=== PATIENT | male | born 1985 | race American Indian/Alaskan Native ===

== ENCOUNTER → 2023-07-03 09:48 | Outpatient (BNVA) | payer MEDICAID, SELFPAY | PROVIDERS: Visit Provider Physician Assistant Surgical ==

== ENCOUNTER 2023-08-02 10:01 | Outpatient (AMB) | payer MEDICAID, SELFPAY ==
--- NOTE | 2023-08-02 10:03 | MHC.OFFVISWM ---
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 He heard about the program from his friend. His goal is to lose weight and achieve a healthy lifestyle as well as to improve, if not resolve, obesity related medical conditions, including HTN. He reports first being concerned about his weight 10 years, highest weight to date was 250. Weight upon presentation to the [facility] program on 07/03/23 was 242.4 pounds with a BMI of 38. Current weight is 239.4 pounds with a BMI of 37.5. He has made an effort to eliminate soda and candy. He has tried multiple methods of weight loss including fad diets without permanent results. He lives with his son. 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 He wakes at:?1230 pm, and goes to bed at?3 am. Dinner is at 7 pm. Breakfast: 2 eggs, ham and toast AM snack: mashed potato w chicken Lunch: rice and chicken PM snack: PB crackers Other snacks: candy Liquids: 112 oz water, previously 3 cans soda daily, no juice Alcohol/marijuana/tobacco intake: none Exercise: previously [employer] GERD score: 23 SPIKE score: 9 ESS score: 16 QOL score: 122 PFSH Surgical History No history of previous surgery Family History Mother Cancer Hypertension Diabetes Father Hypertension Son Asthma Daughter Asthma Social History Alcohol intake: never Patient Tobacco Use Status: Never used Tobacco Review of Systems Const All systems reviewed & are unremarkable except as noted in HPI and below Physical Exam Vital Signs: Last Vital Signs Temp 97.5 F 08/02/23 10:09 Pulse 83 08/02/23 10:09 BP 165/98 H 08/02/23 10:09 Pulse Ox 98 08/02/23 10:09 Oxygen Delivery Method Room Air 08/02/23 10:09 BMI result Body Mass Index 37.5 Const General: cooperative, healthy appearing and no acute distress Orientation/consciousness: patient oriented x3 HEENT Head: Yes normal to inspection Ears: hearing grossly normal bilaterally General nose exam: Normal external nose present Face and sinus: Yes normal facial exam Eyes General: appearance normal, both eyes and all related structures Resp Effort & Inspection: normal respiratory effort Auscultation: clear to auscultation bilaterally Cardio Rate: regular rate Rhythm: regular rhythm Heart sounds: S1 normal heart sound present and S2 normal heart sound present GI Inspection: Yes normal to inspection, No distended and Yes obesity Palpation (GI): Soft to palpation, nontender and no guarding Auscultation: normal bowel sounds Skin General skin exam: no rashes or lesions noted Neuro General: patient oriented x3 Extrem General: No edema Psych Appearance: grossly normal Mental Status: mental status grossly normal Speech and movement: Normal speech and movement present Affect: normal affect Attitude: cooperative Assessment & Plan Assessment & Plan (1) Obesity (BMI 30-39.9): Code(s): E66.9 - Obesity, unspecified Plan: This is a?38 yo male who will start our SWL program to prepare for bariatric surgery.? Blood work, h pylori , CXR, ECG, Abd US and UGI have been ordered. He is being scheduled for RD and BH initial consultations. He will start SWL classes and watch the first three videos before his next appointment. ? Adequate sleep of 7-8 hours per night discussed, awakening at 1230 pm and going to bed at 3 am ? Purchase body composition analyzer scale ([employer] recommended) and check weight weekly. The best time to do this is first thing in the morning after going to the bathroom. 1. Nutritional counseling: Be sure to careful read the number of scoops per shake Start with 1 Celebrate [place] shake ([facility] [employer], [employer], [employer]), (2 scoops in 20 oz unsweetened almond milk) at 130pm-330pm Meal at 5pm (8 forks of protein and 8 forks of salad/vegetables). Meal to include lean meat (beef, fish, pork, turkey, chicken), cooked vegetables or a salad with olive oil and/or fruits (berries, pears, apples, kiwi). Avoid salt, breads, potatoes, rice, pasta, desserts. 2 protein bars per day (Celebrate bars at [facility] [employer], [employer], [employer]) First bar at 730pm-930pm. Another protein bar at 1130pm-130am. Try to drink 64-80 oz of water daily and avoid soda and juices. ?2. Each shake would be drunk slowly, like coffee in a period of 2 hours. ?3. Cut each bar in 4 pieces and eat each piece in 30 min ?to make each bar last 2 hours. ?4. I emphasized the importance of measuring accurately the food portion and measure it carefully when serving the food on the plate ?5. The meal portions include 8 full-size forks of meat and 8 full-size forks of salad. You always eat the meat portion but you can replace up to half of the forks of salad/vegetables with rice, potatoes or pasta, or a fruit ?if you like. The less you do it the better weight loss will be. ?6. One full-size fork is what can be scooped on the fork without falling aside and not what can be bit with the fork. Use regular forks like those you find in a typical restaurant. ?7.? Please send me weight measurements as soon as possible and then once a week. Always include your diet and exercise plan. Alternatively come weekly at the office for weight checks and send me the measurements. ?8. Exercise counseling: Begin by watching a stretching for beginners video. Start slowly and begin to stretch your muscles. You should do this before and after each exercise session to prevent injury. Please join [employer] gym near your home. Ask the regional retail sales manager or one of the trainers how to use the machines if you are unfamiliar with them. Start elliptical with a resistance of 2. Increase resistance by 1 every 3 min to your most comfortable resistance with a max resistance of 8. Reduce the resistance by 1 every 3 minutes back down to 2 and repeat cycles for 300 calories. Alternatively, start treadmill with a speed of 3.0 and incline of 0, increasing incline by 1 every 3 minutes to the highest comfortable level (max 6 for now) then decrease in the same fashion. Repeat process to a goal of 300 calories. Goal of 2000 calories burned or more weekly. You may also consider use of the stationary bike. The easiest would be to chose the fat-burn or interval training program on the machine and do this until you reach the 300 calorie goal. Alternatively, you can manually adjust the resistance in a similar fashion as mentioned above, (resistance of 2-8 with a goal speed of 12 mph). Tracking calories is essential. 9. Alternatively start walking outside daily, tracking calories with a goal of 300 calories per day, daily. You can download the [employer]von [employer] which can track your time, distance and calories while walking outside. You press start in the trevon when you start and then stop when you are finished. 10.? It is important to communicate with me weekly by text 11. Please get labs, EKG and chest X-Ray within 1 week. 12. Discussed and answered all questions regarding?obtained consent to participate in the [place] [facility]?Registry. 13. Please follow the diet plan exactly, without any change. If you do not like something about the plan or you feel hungry, you need to communicate with me so I can help you revise the plan. You should not change the plan yourself. Text me at [phone] 14. Goal is to lose at least 10 pounds in the first month 15. Goal is to lose 10% of your weight before surgery, which is about 24 lbs. Ultimate weight goal: 218 lbs before surgery Patient is morbidly obese and is not considered stable at this time.?I spent a total of 70 minutes reviewing/updating records, examining the patient and counseling the patient on weight management as detailed above. (2) Snoring: Code(s): R06.83 - Snoring Plan: will check home sleep study and refer to sleep med if positive Orders: Orders Insulin Today E66.9 - Obesity, unspecified, R06.83 - Snoring Zinc Today E66.9 - Obesity, unspecified, R06.83 - Snoring Vitamin B1 Today E66.9 - Obesity, unspecified, R06.83 - Snoring C Reactive Protein Today E66.9 - Obesity, unspecified, R06.83 - Snoring TSH reflex Free T4 Today E66.9 - Obesity, unspecified, R06.83 - Snoring H Pylori Breath Test Today E66.9 - Obesity, unspecified, R06.83 - Snoring XR chest 2V Today E66.9 - Obesity, unspecified, R06.83 - Snoring ECG 12 lead EKG Today E66.9 - Obesity, unspecified, R06.83 - Snoring Lipid Panel Today E66.9 - Obesity, unspecified, R06.83 - Snoring IRON PROFILE Today E66.9 - Obesity, unspecified, R06.83 - Snoring Complete Blood Count Auto Diff Today E66.9 - Obesity, unspecified, R06.83 - Snoring Vitamin B12 and Folate Today E66.9 - Obesity, unspecified, R06.83 - Snoring Comprehensive Met. Panel Today E66.9 - Obesity, unspecified, R06.83 - Snoring Vitamin A Today E66.9 - Obesity, unspecified, R06.83 - Snoring Ferritin Today E66.9 - Obesity, unspecified, R06.83 - Snoring PTHI Today E66.9 - Obesity, unspecified, R06.83 - Snoring Vitamin D 25-OH Total Today E66.9 - Obesity, unspecified, R06.83 - Snoring Hemoglobin A1c Today E66.9 - Obesity, unspecified, R06.83 - Snoring US abdomen comp w elastography Today E66.9 - Obesity, unspecified, R06.83 - Snoring FL upper GI w air Today E66.9 - Obesity, unspecified, R06.83 - Snoring RT home sleep study Today E66.9 - Obesity, unspecified, R06.83 - Snoring Referrals Behavioral Health Referral E66.9 - Obesity, unspecified, R06.83 - Snoring Nutrition/Dietitian Referral E66.9 - Obesity, unspecified, R06.83 - Snoring Coding Level of Care Code New Pt Level 5 (68629) Diagnoses Obesity (BMI 30-39.9) E66.9 Snoring R06.83 Time Spent (min) 70
[2023-08-02 10:09] VITALS: BP 165/98; PULSE 83; TEMP 36.4; O2SAT 98; BMI 37.5
== END 2023-08-02 11:12 | disposition home or self-care (01) ==
PROVIDERS: Visit Provider Physician Assistant Surgical
DX: E66.9 Obesity, unspecified (principal); Z68.37 Body mass index [BMI] 37.0-37.9, adult; R06.83 Snoring
CPT/HCPCS: 99205

== ENCOUNTER 2023-08-02 10:01 | Outpatient (REF) | payer MEDICAID, SELFPAY ==
[2023-08-05 09:10] LABS: H Pylori Breath Test Positive (Negative)
== END 2023-08-02 10:02 | disposition home or self-care (01) ==
LOC: HO.LNP 10:01
PROVIDERS: Visit Provider Physician Assistant Surgical
DX: E66.9 Obesity, unspecified (principal); R06.83 Snoring; Z71.3 Dietary counseling and surveillance; Z11.0 Encounter for screening for intestinal infectious diseases; Z68.38 Body mass index [BMI] 38.0-38.9, adult
CPT/HCPCS: 83013; 99211; 99212

== ENCOUNTER 2023-08-21 09:38 | Outpatient (REF) | payer MEDICAID, SELFPAY ==
[2023-08-21 10:01] LABS: MANUAL DIFF FLAG NO
[2023-08-21 10:28] LABS: Estimated Average Glucose 117 mg/dL; Hemoglobin A1c % 5.7 % (<6.0)
[2023-08-21 10:34] LABS: Basophils Absolute Auto 0.1 X10*3/uL (0.0-0.2); Basophils Percent Auto 0.8 % (0-2); Eosinophils Absolute Auto 0.1 X10*3/uL (0.0-0.4); Eosinophils Percent Auto 1.4 % (0-4); Hematocrit 42.3 % (42.0-52.0); Hemoglobin 13.8 g/dl (14.0-18.0); Imm Gran Abs Auto 0.03 X10*3/uL (0.00-0.03); Imm Gran Pct Auto 0.4 % (0.0-0.4); Lymphocytes Absolute Auto 1.6 X10*3/uL (1.2-4.9); Lymphocytes Percent Auto 19.3 % (20-40); Mean Corpuscular HGB Conc 32.6 g/dl (31.0-36.0); Mean Corpuscular Hemoglobin 27.9 pg (27.0-33.0); Mean Corpuscular Volume 85.6 fL (80.0-98.0); Mean Platelet Volume 10.4 fL (9.4-12.4); Monocytes Absolute Auto 0.5 X10*3/uL (0.1-1.2); Monocytes Percent Auto 5.4 % (2-11); Neutrophils Percent Auto 72.7 % (45-73); Platelet Count 336 X10*3/uL (160-400); Red Blood Count 4.94 X10*6/uL (4.60-5.80); Red Cell Distribution Width 12.8 % (11.0-16.0); White Blood Count 8.3 X10*3/uL (4.8-10.8)
[2023-08-21 10:59] LABS: Alanine Aminotransferase 34 U/L (0-40); Albumin Level 4.1 g/dL (3.5-5.0); Alkaline Phosphatase 78 U/L (39-117); Anion Gap 10 (12-20); Aspartate Amino Transferase 24 U/L (5-37); Bilirubin Total 0.4 mg/dL (0.0-1.0); Blood Urea Nitrogen 15 mg/dL (9-16); C Reactive Protein 1.57 mg/dL (< or = 0.50); Calcium 9.6 mg/dL (8.4-10.2); Carbon Dioxide 28 mmol/L (22-29); Chloride 108 mmol/L (96-108); Cholesterol 149 mg/dL (<200); Estimated Glomerular Filt Rate > 60; Glucose Random 103 mg/dL (60-115); HDL Cholesterol 46 mg/dL (>40); Iron 41 mcg/dL (45-160); LDL Cholesterol Calculated 91 mg/dL (<100); Percent Iron Saturation 17 % (15-50); Potassium 4.6 mmol/L (3.3-5.1); Sodium 141 mmol/L (135-145); Total Iron Binding Capacity 243 mcg/dL (228-428); Total Protein 7.9 g/dL (6.5-8.0); Triglycerides 60 mg/dL (<150); Unsaturated Iron Binding 202 ug/dL
[2023-08-21 11:25] LABS: Ferritin 169 ng/mL (20-250); TSH reflex Free T4 2.01 uIU/mL (0.32-4.0); Vitamin D 25-OH Total 15.3 ng/mL (>30)
[2023-08-21 11:32] LABS: Folate 10.5 ng/mL (> or = 4.0); Vitamin B12 745 pg/mL (200-900)
[2023-08-21 11:41] LABS: Insulin 12 uU/mL (2-29)
[2023-08-23 15:31] LABS: H Pylori Breath Test Negative (Negative)
[2023-08-23 16:24] LABS: Zinc 69 mcg/dL (60-130)
[2023-08-25 03:59] LABS: Vitamin A 32 mcg/dL (38-98)
[2023-08-26 08:38] LABS: Vitamin B1 23 nmol/L (8-30)
== END 2023-08-21 09:39 | disposition home or self-care (01) ==
LOC: HO.LAB 09:38
PROVIDERS: Visit Provider Physician Assistant Surgical
DX: E66.9 Obesity, unspecified (principal); R06.83 Snoring; Z71.3 Dietary counseling and surveillance
CPT/HCPCS: 36415; 80053; 80061; 82306; 82607; 82728; 82746; 83013; 83036; 83525; 83540; 84425; 84443; 84590; 84630; 85025; 86140; 97802; 99211

== ENCOUNTER 2023-08-21 10:08 | Outpatient (AMB) | payer MEDICAID, SELFPAY ==
--- NOTE | 2023-08-21 11:07 | A.OFFVIS_ITS ---
Intake Intake Visit Reasons: (OV) Initial Nutrition [facility] Assistant Director Of Public Works Required: Yes Assistant Director Of Public Works Name: Gisele [id number] Information Interpreted: non-clinical & clinical Allergies No Known Allergies Allergy (Verified 08/02/23 10:07) HPI Nutrition Presentation Reason for consult elevated BMI Diet Assmnt Details Pt reports following his nutrition plan, no questions or concerns. Walking outside daily for 1 hour [facility] online classes: was taking [facility] classes by mistake , will enroll in [facility]. provided handouts and post op diet education verbally Dietary counseling reduction Who buys your food self Who prepares/cooks your food self Lifestyle Eating out 1-3 times/week Food frequency Fruit: daily, Vegetables: daily, Grains/pasta/breads/cereal (carbs): daily, Meats/poultry/fish (protein): daily (likes everything ), Meat substitutes/nuts/seeds/legumes: daily, Restaurants/fast foods: several times weekly, Water: daily, Soda: daily, Juice: daily and Coffee: daily Diagnosis Nutrition problem #1 overweight/obesity As related to (etiology) #1 excess energy intake and physical inactivity As evidenced by (sign/symptom) #1 high BMI Monitoring/Goals Nutrition problem monitoring total energy intake, level of knowledge/skill, total PRO intake, total CHO intake, weight and oral fluids Outcome progress progressing Learning/Education Readiness to learn good Stages of change action Educational materials provided Yes Most Recent Diabetes Results: Cholesterol 149 mg/dL (<200) 08/21/23 HDL Cholesterol 46 mg/dL (>40) 08/21/23 Triglycerides 60 mg/dL (<150) 08/21/23 Creatinine 0.84 mg/dL (0.5-1.4) 08/21/23 Blood Urea Nitrogen 15 mg/dL (9-16) 08/21/23 Sodium 141 mmol/L (135-145) 08/21/23 Potassium 4.6 mmol/L (3.3-5.1) 08/21/23 Chloride 108 mmol/L (96-108) 08/21/23 Carbon Dioxide 28 mmol/L (22-29) 08/21/23 Calcium 9.6 mg/dL (8.4-10.2) 08/21/23 AST 24 U/L (5-37) 08/21/23 ALT 34 U/L (0-40) 08/21/23 Total Protein 7.9 g/dL (6.5-8.0) 08/21/23 Albumin 4.1 g/dL (3.5-5.0) 08/21/23 [facility] Surgical History No history of previous surgery Family History Mother Cancer Hypertension Diabetes Father Hypertension Son Asthma Daughter Asthma Social History Alcohol intake: never Patient Tobacco Use Status: Never used Tobacco Assessment & Plan Assessment & Plan (1) Obesity (BMI 30-39.9): Code(s): E66.9 - Obesity, unspecified Plan complete classes, nutrition f/u when completed Coding Level of Care Code Nutr Indiv Intake (21204) Diagnoses Obesity (BMI 30-39.9) E66.9 Time Spent (min) 40
== END 2023-08-21 11:56 | disposition home or self-care (01) ==
PROVIDERS: Visit Provider Dietitian, Registered
DX: E66.9 Obesity, unspecified (principal)

== ENCOUNTER 2023-08-28 11:02 | Outpatient (AMB) | payer MEDICAID, SELFPAY ==
--- NOTE | 2023-08-28 11:06 | A.OFFVIS_ITS ---
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 They were last seen in the office on 08/02/2023, recorded weight at that time was 239.4 pounds, with a BMI of 37.5. Today's weight is 238.6 pounds and BMI is 37.4. There has been a weight loss of 3.6 pounds since initiating the surgical weight loss program on 07/03/2023 with a total body weight loss of 1.4 %. Pre op work up completed as follows: SWL classes:? 04/25 BH appts: 09/04/2023 ? ? RD appts: 09/04/2023 Labs: 08/21/2023-low D, a. H. pylori: 08/02/2023-positive, repeat 08/21/2023-negative CXR: Not yet done EKG: Not yet done ABD U/S: 09/06/23 UGI: 10/23/23 The patient reports he feels very well. He is following the meal plan. He does however have elevated asymptomatic hypertension here in the office. He states that when he was receiving care in [place] he was getting atenolol 50 mg daily although he stopped this on his own approximately 2 years ago. The patient does have a body composition scale. They also have been communicating weekly. Current meal plan includes: 1 Celebrate Rebuild shake ([facility] [employer], [employer], [employer]), (2 scoops in 20 oz unsweetened almond milk) at 130pm-330pm Meal at 5pm (8 forks of protein and 8 forks of salad/vegetables). 2 protein bars per day ([facility], [employer], [employer]) First bar at 730pm-930pm. Another protein bar at 1130pm-130am. Drinking 40 oz of water Current exercise plan includes: walking treadmill 5 x per week, 30-60 minutes PFSH Surgical History No history of previous surgery Family History Mother Cancer Hypertension Diabetes Father Hypertension Son Asthma Daughter Asthma Social History Alcohol intake: never Patient Tobacco Use Status: Never used Tobacco Review of Systems Const All systems reviewed & are unremarkable except as noted in HPI and below Physical Exam Vital Signs: Last Vital Signs Temp 97.1 F 08/28/23 11:13 Pulse 68 08/28/23 11:13 BP 164/98 H 08/28/23 11:13 Pulse Ox 97 08/28/23 11:13 Oxygen Delivery Method Room Air 08/28/23 11:13 BMI result Body Mass Index 37.4 Const General: healthy appearing and no acute distress Resp Effort & Inspection: normal respiratory effort Auscultation: clear to auscultation bilaterally Cardio Rate: regular rate Rhythm: regular rhythm GI Auscultation: normal bowel sounds Extrem General: Yes normal to inspection Assessment & Plan Assessment & Plan (1) Obesity (BMI 30-39.9): Code(s): E66.9 - Obesity, unspecified Plan: Continue current meal plan. Encouraged to track calories on the treadmill. He will continue to text me weekly with his weight and if any questions. (2) HTN (hypertension): Code(s): I10 - Essential (primary) hypertension Plan: Currently asymptomatic. He was supposed to be taking atenolol 50 mg daily although stopped this on his own. I did call the [place] [facility] on [address] in [place] however they do not accept his insurance and he was directed to go to the walk-in clinic at [address] [place] [address] in [place]. He states that he will go there today for care. Coding Level of Care Code Est Pt Level 4 (06357) Diagnoses Obesity (BMI 30-39.9) E66.9 HTN (hypertension) I10
[2023-08-28 11:13] VITALS: BP 164/98; PULSE 68; TEMP 36.2; O2SAT 97; BMI 37.4
== END 2023-08-28 11:53 | disposition home or self-care (01) ==
PROVIDERS: Visit Provider Physician Assistant Surgical
DX: E66.9 Obesity, unspecified (principal); Z68.37 Body mass index [BMI] 37.0-37.9, adult; I10 Essential (primary) hypertension
CPT/HCPCS: 99214

== ENCOUNTER → 2023-08-28 11:02 | Outpatient (BNVA) | payer MEDICAID, SELFPAY | PROVIDERS: Visit Provider Physician Assistant Surgical | DX: E66.9 Obesity, unspecified (principal); I10 Essential (primary) hypertension; Z68.37 Body mass index [BMI] 37.0-37.9, adult | CPT/HCPCS: 99212 ==

== ENCOUNTER 2023-09-01 10:43 | Outpatient (REF) | payer MEDICAID, SELFPAY ==
--- NOTE | ~2023-09-01 | XR_ITS ---
EXAMINATION: XR CHEST CLINICAL INFORMATION: Obesity COMPARISON: None available. TECHNIQUE: 2 views of the chest were obtained. FINDINGS: Slight obscuration of the left hemidiaphragm, likely due to superimposition of tissues with no reproduction on lateral view. No significant abnormality is noted involving the heart, lungs, mediastinum, bony thorax or soft tissues. XR/XR chest 2V IMPRESSION: No acute cardiopulmonary disease.
--- NOTE | 2023-09-01 10:47 | ECG_ITS ---
Test Reason : e66.9 Blood Pressure : / mmHG Vent. Rate : 072 BPM Atrial Rate : 072 BPM P-R Int : 146 ms QRS Dur : 084 ms QT Int : 360 ms P-R-T Axes : 046 016 005 degrees QTc Int : 394 ms Normal sinus rhythm Normal ECG No previous ECGs available Referred By: Domenic Metzger Electronically Signed By:Reinaldo Krueger
== END 2023-09-01 10:44 | disposition home or self-care (01) ==
LOC: HO.XRAY 10:43
PROVIDERS: Visit Provider Physician Assistant Surgical
DX: E66.9 Obesity, unspecified (principal); R06.83 Snoring
CPT/HCPCS: 71046; 93005

== ENCOUNTER → 2023-09-01 10:47 | Outpatient (BNV) | payer MEDICAID, SELFPAY | PROVIDERS: Visit Provider Internal Medicine Cardiovascular Disease | DX: R06.83 Snoring (principal); E66.9 Obesity, unspecified | CPT/HCPCS: 93010 ==

== ENCOUNTER 2023-09-04 09:35 | Outpatient (AMB) | payer MEDICAID, SELFPAY ==
--- NOTE | 2023-09-04 10:59 | MHC.AMNUTRGE ---
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 Dinner meal is at 6pm chicken in the ir fryer and salad with vinegar Walking outside daily for 1 hour [facility] online classes: completed , reviewed Dietary counseling reduction Who buys your food self Who prepares/cooks your food self Diagnosis Nutrition problem #1 overweight/obesity As related to (etiology) #1 excess energy intake and physical inactivity As evidenced by (sign/symptom) #1 high BMI Monitoring/Goals Nutrition problem monitoring total energy intake, level of knowledge/skill, total PRO intake, total CHO intake, weight and oral fluids Outcome progress progressing Learning/Education Readiness to learn good Stages of change action Educational materials provided Yes Most Recent Diabetes Results: Cholesterol 149 mg/dL (<200) 08/21/23 HDL Cholesterol 46 mg/dL (>40) 08/21/23 Triglycerides 60 mg/dL (<150) 08/21/23 Creatinine 0.84 mg/dL (0.5-1.4) 08/21/23 Blood Urea Nitrogen 15 mg/dL (9-16) 08/21/23 Sodium 141 mmol/L (135-145) 08/21/23 Potassium 4.6 mmol/L (3.3-5.1) 08/21/23 Chloride 108 mmol/L (96-108) 08/21/23 Carbon Dioxide 28 mmol/L (22-29) 08/21/23 Calcium 9.6 mg/dL (8.4-10.2) 08/21/23 AST 24 U/L (5-37) 08/21/23 ALT 34 U/L (0-40) 08/21/23 Total Protein 7.9 g/dL (6.5-8.0) 08/21/23 Albumin 4.1 g/dL (3.5-5.0) 08/21/23 PFSH Surgical History No history of previous surgery Family History Mother Cancer Hypertension Diabetes Father Hypertension Son Asthma Daughter Asthma Social History Alcohol intake: never Patient Tobacco Use Status: Never used Tobacco Assessment & Plan Assessment & Plan (1) Obesity (BMI 30-39.9): Code(s): E66.9 - Obesity, unspecified Plan Patient is cleared from a nutrition standpoint for bariatric surgery. Educational requirements have been completed. Reviewed vitamin supplementation and commitment to protein shake for several months post surgery. Encouraged communication with office as needed Coding Level of Care Code Nutr Indiv Subseq ([id number]) Diagnoses Obesity (BMI 30-39.9) E66.9 Time Spent (min) 20
== END 2023-09-04 11:15 | disposition home or self-care (01) ==
PROVIDERS: Visit Provider Dietitian, Registered
DX: E66.9 Obesity, unspecified (principal)

== ENCOUNTER 2023-09-04 09:35 | Outpatient (AMB) | payer OTHER, SELFPAY ==
--- NOTE | 2023-09-04 10:13 | A.OFFWM_ITS ---
Intake Intake Visit Reasons: VIDEO BH Intake Allergies No Known Allergies Allergy (Verified 08/28/23 11:22) [facility] Surgical History No history of previous surgery Family History Mother Cancer Hypertension Diabetes Father Hypertension Son Asthma Daughter Asthma Social History Alcohol intake: never Patient Tobacco Use Status: Never used Tobacco Behavioral Health Assessment Weight Management Therapy Therapy Notes Details Pt is a 48 years old, male, who presents for initial behavioral health assessment as part of surgical weight-loss program. PT denied any history of mental health treatment and or past hospitalization/crisis for behavioral health. Denies any safety concerns around SI and/or self-other harm, also there is no history of substance use reported. There is also no evidence for stress/emotional-eating, and scores from BES suggest minimal risk for binge eating behavior. PHQ- scores also showed no active symptoms/concerns with depression. Mental status exam is withing normal limits, suggesting person's functioning is not impaired. At this time patient is cleared from the behavioral health standpoint. Presenting Concerns Referral Source [facility]MP Provider, Pt sees [facility]. Reason for referral Completion of behavioral health assessment as part of process for weight-loss surgery. Precipitating Event Obesity. Living Situation Current Living Situation Rent At risk of losing current housing? No Satisfied with current living situation? Yes Comments PT lives with his 17 y/o son. Food/Weight/Diet Expectations of change The initial goal is to lose 10% of his weight before surgery, about 24 lbs- Ultimate weight goal: 218 Lbs before surgery. Pt would like to weigh a min of 175 lbs. History/Relationship with food Food choices were -style and also whatever was convenient such as take-out and fast food. . Meals before starting the plan Breakfast: 10 am/ rice with beans Lunch: before 3 pm, any fast food or take out (Iranian, burgers, pizza) Dinner: usually while at work so he would snack or skip. After work, @2am had cereal with milk or any available food. History/Relationship with weight Max weight in past 10 years was 260Lbs in summer/2021 and lowest 170Lbs in 2015. Weight gain has been steady. However in 2019 he had major changes leading to work a lot and eat in a different schedule, wasn't exercising and food choices were mostly quick and convenient. History/Relationship with dieting Reduce portions, cut on calories and carbs, shakes, and portion control. Gym membership. Now following meal plan. Binge Eating Do you frequently eat large amounts of food in short periods of time, not feeling physically hungry? Yes Do you feel out of control when you eat a large amount of food in a short period of time? No Do you eat large amounts of food rapidly and typically alone? No Night Eating Do you wake up at least once during the night to eat? No If you wake up in the night, do you find that it is necessary to eat something in order to fall back asleep? No Do you have little or no appetite in the morning and feel very hungry in the evening, often overeating between dinner and when you go to bed? Yes Social History Family history and relationship Single father. He has 2 children. 17 y/o son who lives with him and 13 y/o daughter who lives in [place]. PT has 2 siblings. Parents alive. Most of his family live in [place] and sister in [place]. Patient reports excellent family relationships. 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 Pt has full custody. Developmental history and status None reported. Currently [facility]. Social support Mother. Community support None. 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 Cultural/Ethnic information , from [place]. Lives in [place] 2 years ago. Legal Involvement and History Current or historical involvement with the legal system? None reported. Education Highest grade completed 12th. Vocational/trait school. Preferred learning style Auditory, Verbal, Written, Learn by doing and Visual Currently enrolled in educational program? No Interested in further educational program? 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 No Meaningful activities Drive, cinema. Financial Situation Describe current financial situation Comfortable Financial assistance? None Service Service? No Mental Health and Addiction Treatment Current/Past substance abuse? No Current/Past addictive behavior concerns? No Psychiatric history Never in treatment before. Medical and Physical Health Summary Additional Medical History not covered in history None reported Sexual History concerns None reported Physical exam in the last year? Yes Pain Screening Current pain? No Pain in the last few months? No Medications Is the patient compliant with medications? Yes Does the patient have Odom Guardian in place? Not applicable Does the patient use complimentary health approaches? No Trauma/Abuse History History of trauma? No Questionnaires PHQ-9 Over the last 2 weeks, how often have you been bothered by any of the following problems? 1. Little interest or pleasure in doing things: not at all 2. Feeling down, depressed, or hopeless: not at all 3. Trouble falling or staying asleep, or sleeping too much: not at all 4. Feeling tired or having little energy: not at all 5. Poor appetite or overeating: not at all 6. Feeling bad about yourself - or that you are a failure or have let yourself or your family down: not at all 7. Trouble concentrating on things, such as reading the newspaper or watching television: not at all 8. Moving or speaking so slowly that other people could have noticed. Or the opposite - being so fidgety or restless that you have been moving around a lot more than usual: not at all 9. Thoughts that you would be better off or of hurting yourself in some way: not at all Total score: 0 Depression Screening Interpretation: Negative Depression Screening Done: Yes 32540 - PHQ-9 Billing: Yes Source: Developed by Drs. Clive Oconnell, Anusha Campuzano, Yassine Beltre and colleagues, with an educational jamey from [employer]. Binge Eating Scale Group 1 A. I don't feel self-conscious about my wt. or body size when I'm with others. B. I feel concerned about how I look to others, but it normally does not make me fell disappointed with myself C. I do get self-conscious about my appearance and wt. which makes me feel disappointed in myself. D. I feel very self-conscious about my wt. and frequently I feel intense shame and disgust for myself. I try to avoid social contacts because of my self- consciousness. Response Group 1: B Group 2 A. I don't have any difficulty eating slowly in the proper manner. B. Although I seem to gobble down foods, I don't end up feeling stuffed because of eating to much. C. At times, I tend to eat quickly and then, I feel uncomfortably full afterwards. D. I have the habit of bolting down my food, without really chewing it. When this happens I usually feel uncomfortably stuffed because I've eaten to much. Response Group 2: B Group 3 A. I feel capable to control my eating urges when I want to. B. I feel like I have failed to control my eating more than the average person. C. I feel utterly helpless when it comes to feeling in control of my eating urges. D. Because I feel so helpless about controlling my eating I have become very desperate about trying to get control. Response Group 3: A Group 4 A. I don't have the habit of eating when I'm bored. B. I sometimes eat when I'm bored, but often I'm able to get busy and get my mind off food. C. I have a regular habit of eating when I'm bored, but occasionally, I can use some other activity to get my mind off eating. D. I have a strong habit of eating when I'm bored. Nothing seems to help me breath the habit. Response Group 4: A Group 5 A. I'm usually physically hungry when I eat something. B. Occasionally, I eat something on impulse even though I really am not hungry. C. I have the regular habit of eating foods, that I might not really enjoy, to satisfy a hungry feeling even though physically, I don't need the food. D. Although I'm not physically hungry, I get a hungry feeling in my mouth that only seems to be satisfied when I eat a food, like sandwich, that fills my mouth. Sometimes, when I eat the food to satisfy my mouth hunger, I then spit the food out so I won't gain weight. Response Group 5: A Group 6 A. I don't feel any guilt or self-hate after I overeat. B. After I overeat, occasionally I feel guilt or self-hate. C. Almost all the time I experience strong guilt or self-hate after I overeat. Response Group 6: B Group 7 A. I don't lose total control of my eating when dieting even after periods when I overeat. B. Sometimes when I eat a forbidden food on a diet, I feel like I blew it and eat even more. C. Frequently, I have the habit of saying to myself, I've blown it now, why not go all the way, when I overeat on a diet. When that happens I eat more. D. I have a regular habit of starting a strict diets for myself but I break the diets by going on an eating binge. My life seems to be either a feast or famine. Response Group 7: A Group 8 A. I rarely eat so much food that I feel uncomfortably stuffed afterwards. B. Usually about once a month, I each such a quantity of food, I end up feeling very stuffed. C. I have regular periods during the month when I eat large amounts of food, either at mealtime or at snacks. D. I eat so much food that I regularly feel quite uncomfortable after eating and sometimes a bit nauseous. Response Group 8: A Group 9 A. My level of calorie intake does not go up very high or go down very low on a regular basis. B. Sometimes after I overeat, I will try to reduce my caloric intake to almost nothing to compensate for the excess calories I've eaten. C. I have a regular habit of overeating during the night. It seems that my routine is not to be hungry in the morning but overeat in the evening. D. In my adult years, I have had week-long periods where I practically starve myself. This follows periods when I overeat. It seems I live a life of either feast or famine. Response Group 9: B Group 10 A. I usually am able to stop eating when I want to. I know when enough is enough. B. Every so often, I experience a compulsion to eat which I can't seem to control. C. Frequently, I experience strong urges to eat which I seem unable to control, but at other times I can control my eating urges. D. I feel incapable of controlling urges to eat. I have a fear of not being able to stop eating voluntarily. Response Group 10: A Group 11 A. I don't have any problem stopping eating when I feel full. B. I usually can stop eating when I feel full but occasionally overeat leaving me feeling uncomfortably stuffed. C. I have a problem stopping eating once I start and usually I feel uncomfortably stuffed after I eat a meal. D. Because I have a problem not being able to stop eating when I want, I sometimes have to induce vomiting to relieve my stuffed feeling. Response Group 11: B Group 12 A. I seem to eat just as much when I'm with others, Family social gatherings as when I'm by myself. B. Sometimes, when I'm with other persons, I don't eat as much as I want to eat because I'm self-conscious about my eating. C. Frequently, I eat only a small amount of food when others are present, because I'm very embarrassed about my eating. D. I feel so ashamed about overeating that I pick times to overeat when I know no one will see me. I feel like a closet eater. Response Group 12: C Group 13 A. I eat three meals a day with only an occasional between meal snack. B. I eat 3 meals a day, but I also normally snack between meals. C. When I am snacking heavily, I get in the habit of skipping regular meals. D. There are regular periods when I seem to be continually eating, with no planned meals. Response Group 13: A Group 14 A. I don't think much about trying to control unwanted eating urges. B. At least some of the time, I feel my thoughts are pre-occupied with trying to control my eating urges. C. I feel that frequently I spend much time thinking about how much I ate or about trying not to eat anymore. D. It seems to me that most of my waking hours are pre-occupied by thoughts about eating or not eating. I feel like I'm constantly struggling not to eat. Response Group 14: B Group 15 A. I don't think about food a great deal. B. I have strong craving for food but they last only for brief periods of time. C. I have days when I can't seem to think about anything else but food. D. Most of my days seem to be pre-occupied with thoughts about food. I feel like I live to eat. Response Group 15: A Group 16 A. I usually know whether or not I'm physically hungry. I take the right portion of food to satisfy me. B. Occasionally, I feel uncertain about knowing whether or not I'm physically hungry. A these times it's hard to know how much food I should take to satisfy me. C. Even though I might know how many calories I should eat, I don't have any idea what is a normal amount of food for me. 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 Client is cleared and there is no need for follow up. Clinician has advised client about available resources if ever in need to access additional support and has encourage client to participate in post-op groups. Telehealth Telehealth Location of provider rendering services: other Location of patient: other (@Practice. ) Patient Identification confirmed using: Name, : Yes Telehealth method: video Patient verbally consented to treatment: Yes Patient verbally consented to billing insurance company: Yes Patient informed of any privacy concerns related to visit: No Minutes spent on Phone/Video with Pt.: 50 Coding Level of Care Code New Pt Tele Psy Diag Faby ([id number]) Patient Type New Diagnoses Adjustment disorder, unspecified type F43.20 Adjustment disorder type: unspecified type Time Spent (min) 50
== END 2023-09-04 11:00 | disposition home or self-care (01) ==
PROVIDERS: Visit Provider Counselor Mental Health
DX: F43.20 Adjustment disorder, unspecified (principal)
CPT/HCPCS: 90791

== ENCOUNTER → 2023-09-04 09:35 | Outpatient (BNVA) | payer MEDICAID, SELFPAY | PROVIDERS: Visit Provider Dietitian, Registered | DX: E66.9 Obesity, unspecified (principal) | CPT/HCPCS: 97803 ==

== ENCOUNTER 2023-09-06 10:06 | Outpatient (REF) | payer MEDICAID, SELFPAY ==
--- NOTE | ~2023-09-06 | US_ITS ---
EXAMINATION: US COMPLETE ABDOMEN WITH LIVER ELASTOGRAPHY CLINICAL INFORMATION: Obesity. COMPARISON: None available. TECHNIQUE: Real-time imaging of the abdominal viscera. Noninvasive ultrasound liver fibrosis assessment is performed using [employer] ElastPQ point quantification shear wave elastography (2D-SWE) with a C5-2 MHz transducer. Multiple elastography samples are obtained. FINDINGS: PANCREAS: Normal. The visualized pancreatic head and body are normal in appearance. The remainder of the pancreas is obscured from visualization by the overlying bowel gas. ABDOMINAL AORTA: The proximal, middle, and distal aortic segments are normal in caliber. INFERIOR VENA CAVA: Visualized portions are normal. LIVER: The liver demonstrates normal size, contour and increased echogenicity. A benign, calcified right hepatic lobe granuloma is noted. No focal mass or intrahepatic biliary duct dilatation. The right lobe measures 15.6 cm in length. The left lobe measures 10.0 cm in length. Portal flow is towards the liver (hepatopetal). Shear wave liver elastography median stiffness is 1.31 m/s (reference: normal median stiffness is 1.3 m/s or less). IQR/median stiffness to assess sampling precision is 0.21 (reference: good quality data set is IQR/median stiffness of 0.15 or less). GALLBLADDER: Normal. The gallbladder is physiologically distended without evidence of stones, sludge, polyps, wall thickening or pericholecystic fluid. COMMON BILE DUCT: Normal in caliber measuring 0.3 cm in diameter. RIGHT KIDNEY: Normal. No hydronephrosis. No renal calculi or focal parenchymal lesions. The kidney measures 11.3 cm in maximum dimension. LEFT KIDNEY: Normal. No hydronephrosis. No renal calculi or focal parenchymal lesions. The kidney measures 11.5 cm in maximum dimension. SPLEEN: Normal. The spleen measures 12.2 cm in maximum dimension. FREE FLUID: None. US/US abdomen comp w elastography IMPRESSION: 1. There is generalized increase in hepatic echotexture, consistent with fatty infiltration or hepatocellular disease. Please correlate clinically. No focal hepatic mass or intrahepatic biliary dilatation is seen. 2. Liver elastography: In the absence of other known clinical signs, measurements rule out compensated advanced chronic liver disease. If there are known clinical signs, further testing may be needed for confirmation. REFERENCE: Society of Radiologists in Ultrasound Liver Stiffness Thresholds (2020): LIVER STIFFNESS THRESHOLDS: *Liver Stiffness equal or less than 1.3 m/s: High probability of being normal. *Liver Stiffness less than 1.7 m/s: In the absence of other known clinical signs, rules out compensated advanced chronic liver disease. *Liver Stiffness 1.7-2.1 m/s: Suggestive of compensated advanced chronic liver disease but need further test for confirmation. *Liver Stiffness over 2.1 m/s: Rules in compensated advanced chronic liver disease. *Liver Stiffness over 2.4 m/s: Suggestive of clinically significant portal hypertension. QUALITY OF DATA SET: *IQR/Median value equal or less than 0.15 implies a quality data set. *IQR/Median value over 0.15 implies a poor quality data set. SIGNIFICANT CHANGE FROM PRIOR EXAM: Significant change if liver stiffness measurement is 10% or greater from prior exam. OTHER CONSIDERATIONS: The stage of liver fibrosis may be overestimated in the setting of acute hepatitis, liver inflammation, elevated liver function tests, hepatic vascular congestion, obstructive cholestasis, non-fasting state, and infiltrative diseases such as amyloidosis and lymphoma. In some patients with NAFLD, the liver stiffness thresholds for compensated advanced chronic liver disease may be lower. In causes other than viral hepatitis and NAFLD, liver stiffness thresholds are not well established.
== END 2023-09-06 10:07 | disposition home or self-care (01) ==
LOC: HO.US 10:06
PROVIDERS: Visit Provider Physician Assistant Surgical
DX: E66.9 Obesity, unspecified (principal); R06.83 Snoring
CPT/HCPCS: 76705; 76981

== ENCOUNTER → 2023-10-02 09:38 | Outpatient (REF) | payer MEDICAID, SELFPAY | LOC: HO.SL 09:38 | PROVIDERS: Visit Provider Physician Assistant Surgical | DX: G47.33 Obstructive sleep apnea (adult) (pediatric) (principal); R06.83 Snoring; R40.0 Somnolence; E66.9 Obesity, unspecified | CPT/HCPCS: 95806 ==

== ENCOUNTER → 2023-10-02 09:54 | Outpatient (BNV) | payer MEDICAID, SELFPAY | PROVIDERS: Visit Provider Internal Medicine | DX: G47.33 Obstructive sleep apnea (adult) (pediatric) (principal) | CPT/HCPCS: 95806 ==

== ENCOUNTER 2023-10-09 14:56 | Outpatient (AMB) | payer MEDICAID, SELFPAY ==
--- NOTE | 2023-10-09 14:58 | A.OFFVIS_ITS ---
Intake VS Expanded 10/09/23 15:08 BP 150/96 H Blood Pressure Location Rt brachial Blood Pressure Position Sitting Pulse 70 Pulse Source Pulse Oximeter Temp 97.9 F Temperature Source Temporal Artery Scan Pulse Oximetry 95 Oxygen Delivery Method Room Air Height 5 ft 7 in Weight 232 lb 12.8 oz BMI 36.5 Body Fat % 33.4 Body Fat Mass 77.6 Fat Free Mass 155.0 Visceral Fat Rating 16.0 Body Water % 48.1 Body Water Mass 111.8 Muscle Mass/Score 147.2 Basal Metabolic Rate/Score 2,117 Intake Visit Reasons: (OV) F/U SWL Prepleater Required: Yes Prepleater Name: office cmi Allergies No Known Allergies Allergy (Verified 10/09/23 15:02) Medication List - Last Reconciled 10/09/23 by ALEXANDRE Royal cholecalciferol (vitamin D3) 125 mcg PO DAILY 90 days omeprazole 20 mg PO BID 14 days vitamin A palmitate 3,000 mcg PO DAILY 90 days HPI HPI Comments History of Present Illness Details The patient is a pleasant 38 year old male who returns to the clinic for pre-operative surgical weight loss management. They were last seen in the office on 08/28/2023, recorded weight at that time was 238.6 pounds, with a BMI of 37.4. Today's weight is 232.8 pounds and BMI is 36.5. There has been a weight loss of 9.4 pounds since initiating the surgical weight loss program on 07/03/2023 with a total body weight loss of 3.8 %. Pre op work up completed as follows: SWL classes:? 04/25 BH appts: 09/04/2023-cleared ? ? RD appts: 09/04/2023-cleared Labs: 08/21/2023-low D, a. H. pylori: 08/02/2023-positive, repeat 08/21/2023-negative CXR: 09/01/2023-nad EK09/01/2023-normal ABD U/S: 09/06/23-fatty liver UGI: 10/23/23 The patient reports he feels very well. He is following the meal plan. He does however have elevated asymptomatic hypertension here in the office. He states that when he was receiving care in [place] he was getting atenolol 50 mg daily although he stopped this on his own approximately 2 years ago. The patient does have a body composition scale. They also have been communicating weekly. He was in [place] and gained weight and then did intermittent fasting and he lost 5 pounds in a week. He returned from [place] 1 week ago. He started a plan on his own 3 eggs w ham in the morning, asparagus w fish for lunch. shake 2 scoops in 8 oz almond milk Current meal plan includes: 1 Celebrate Rebuild shake ([facility] [employer], [employer]), (2 scoops in 20 oz unsweetened almond milk) at 130pm-330pm Meal at 5pm (8 forks of protein and 8 forks of salad/vegetables). 2 protein bars per day ([facility] [employer], [employer])First bar at 730pm-930pm. Another protein bar at 1130pm-130am. Drinking 80 oz of water Current exercise plan includes: walking treadmill 6 x per week, 30-60 minutes , 250 PFSH Surgical History No history of previous surgery Family History Mother Cancer Hypertension Diabetes Father Hypertension Son Asthma Daughter Asthma Social History Alcohol intake: never Patient Tobacco Use Status: Never used Tobacco Review of Systems Const All systems reviewed & are unremarkable except as noted in HPI and below Physical Exam Const General: healthy appearing and no acute distress Resp Effort & Inspection: normal respiratory effort Auscultation: clear to auscultation bilaterally Cardio Rate: regular rate Rhythm: regular rhythm GI Auscultation: normal bowel sounds Extrem General: Yes normal to inspection Assessment & Plan Assessment & Plan (1) Obesity (BMI 30-39.9): Code(s): E66.9 - Obesity, unspecified Plan: Discussed the importance of following the plans exactly as written. He was given another written form of the plan. Encouraged to increase his exercise to 350 calories [place] 6 days per week. He will text with any questions or concerns and return to clinic in 3-4 weeks. Coding Level of Care Code Est Pt Level 3 (11516) Diagnoses Obesity (BMI 30-39.9) E66.9
[2023-10-09 15:08] VITALS: BP 150/96; PULSE 70; TEMP 36.6; O2SAT 95; BMI 36.5
== END 2023-10-09 15:37 | disposition home or self-care (01) ==
LOC: HO.HBS 14:56
PROVIDERS: Visit Provider Physician Assistant Surgical
DX: E66.9 Obesity, unspecified (principal); Z68.36 Body mass index [BMI] 36.0-36.9, adult
CPT/HCPCS: 99213

== ENCOUNTER → 2023-10-09 14:56 | Outpatient (BNVA) | payer MEDICAID, SELFPAY | PROVIDERS: Visit Provider Physician Assistant Surgical | DX: E66.9 Obesity, unspecified (principal); Z68.36 Body mass index [BMI] 36.0-36.9, adult | CPT/HCPCS: 99212 ==

== ENCOUNTER 2023-10-12 09:45 | Outpatient (REF) | payer MEDICAID, SELFPAY ==
--- NOTE | ~2023-10-12 | FL_ITS ---
EXAMINATION: XR FLUOROSCOPY UPPER GI WITH AIR CLINICAL INFORMATION: Preop evaluation prior to bariatric surgery COMPARISON: None TECHNIQUE: Fluoroscopic air contrast upper GI examination was performed utilizing standard techniques with thin and thick barium and effervescent granules. Numerous spot images were obtained. FINDINGS: Lateral cine images of the oropharynx and hypopharynx demonstrate normal swallow mechanism with normal epiglottic inversion and soft palate elevation. There was trace tracheal penetration on thick barium, without glottic or subglottic aspiration identified. No nasopharyngeal reflux present. Hypopharyngeal structures appear normal without evidence of mass or diverticulum. There was no significant cricopharyngeal achalasia. Dual and single contrast images of the esophagus demonstrate normal caliber, contour, and mucosal pattern. No evidence of stricture, mass, or ulcerations identified. Esophageal peristalsis was mildly disordered. A small type I hiatal hernia is present. Gastroesophageal reflux is seen up to the distal esophagus. Dual contrast and single contrast images of the stomach demonstrated normal contour and mucosal pattern without evidence of mass, ulceration, or other abnormality. Contrast freely passed into the gastric antrum and duodenal bulb without delay. Single and air-contrast images of the duodenal bulb demonstrate no abnormality. The duodenal sweep has a normal appearance, course, and mucosal fold appearance. No malrotation. The imaged proximal jejunum has a normal fold pattern and caliber. FLUOROSCOPY TIME: 3 minutes 22 seconds Number of Spot Images: 9 Number of Cine: 9 DOSE AREA PRODUCT: 2455 uGy-m2 (microgray-meter squared) FL/FL upper GI w air IMPRESSION: 1. Small type I hiatal hernia 2. Mild gastroesophageal reflux, and minimally disordered esophageal motility. This procedure was performed by Toy Peterson PA-C, and supervised by Dr. Prescott
== END 2023-10-12 09:46 | disposition home or self-care (01) ==
LOC: HO.XRAY 09:45
PROVIDERS: Visit Provider Physician Assistant Surgical
DX: E66.9 Obesity, unspecified (principal); R06.83 Snoring
CPT/HCPCS: 74246

== ENCOUNTER → 2023-10-12 09:47 | Outpatient (BNV) | payer MEDICAID, SELFPAY | PROVIDERS: Visit Provider Radiology Diagnostic Radiology | DX: Z01.818 Encounter for other preprocedural examination (principal) | CPT/HCPCS: 74246 ==

== ENCOUNTER 2023-10-30 08:15 | Outpatient (AMB) | payer MEDICAID, SELFPAY ==
--- NOTE | 2023-10-30 08:16 | MHC.OFFVISWM ---
Intake VS Expanded 10/30/23 08:22 BP 138/89 Blood Pressure Location Rt brachial Blood Pressure Position Sitting Pulse 85 Pulse Source Pulse Oximeter Temp 96.7 F L Temperature Source Tympanic Pulse Oximetry 98 Oxygen Delivery Method Room Air Height 5 ft 7 in Weight 228 lb 9.6 oz BMI 35.8 Body Fat % 31.5 Body Fat Mass 71.8 Fat Free Mass 156.6 Visceral Fat Rating 15.0 Body Water % 50.3 Body Water Mass 114.8 Muscle Mass/Score 148.8 Basal Metabolic Rate/Score 2,128 Intake Visit Reasons: (OV) F/U SWL Allergies No Known Allergies Allergy (Verified 10/30/23 08:23) Medication List - Last Reconciled 10/30/23 by ALEXANDRE Royal cholecalciferol (vitamin D3) 125 mcg PO DAILY 90 days vitamin A palmitate 3,000 mcg PO DAILY 90 days HPI HPI Comments History of Present Illness Details The patient is a pleasant 38 year old male who returns to the clinic for pre-operative surgical weight loss management. They were last seen in the office on 10/09/2023, recorded weight at that time was 232.8 pounds, with a BMI of 36.5. Today's weight is 2228.6 pounds and BMI is 35.8. There has been a weight loss of 13.6 pounds since initiating the surgical weight loss program on 07/03/2023 with a total body weight loss of 5.6 %. Pre op work up completed as follows: SWL classes:? 04/25 BH appts: 09/04/2023-cleared ? ? RD appts: 09/04/2023-cleared Labs: 08/21/2023-low D, a. H. pylori: 08/02/2023-positive, repeat 08/21/2023-negative CXR: 09/01/2023-nad EK09/01/2023-normal ABD U/S: 09/06/23-fatty liver UGI: 10/12/23-mild gerd, sm HH The patient reports he feels very well. He is following the meal plan. He is very proud of the progress he is making. Current meal plan includes: 1 Celebrate Dillon booth ([facility], [employer], [employer]), (2 scoops in 20 oz unsweetened almond milk) at 130pm-330pm Meal at 5pm (8 forks of protein and 8 forks of salad/vegetables). 2 protein bars per day (Celebrate bars at [facility], [employer], [employer]) First bar at 730pm-930pm. Another protein bar at 1130pm-130am. Drinking 70-80 oz of water Current exercise plan includes: walking treadmill 5 x per week, 60 minutes , 350-400, speed 3.4, incline 2-9 [facility] Surgical History No history of previous surgery Family History Mother Cancer Hypertension Diabetes Father Hypertension Son Asthma Daughter Asthma Social History Alcohol intake: never Patient Tobacco Use Status: Never used Tobacco Review of Systems Const All systems reviewed & are unremarkable except as noted in HPI and below Physical Exam Const General: healthy appearing and no acute distress Resp Effort & Inspection: normal respiratory effort Auscultation: clear to auscultation bilaterally Cardio Rate: regular rate Rhythm: regular rhythm GI Auscultation: normal bowel sounds Extrem General: Yes normal to inspection Assessment & Plan Assessment & Plan (1) Obesity (BMI 30-39.9): Code(s): E66.9 - Obesity, unspecified Plan: Patient is doing well. His weight loss has improved. He has increased his exercise now to an hour. I recommended increasing his incline on the treadmill instead of running. He has been following the meal plan and has completed his preop testing. We will refer him to Dr. Pollard for continued preoperative care. He was reminded to send full data from his scale weekly. Coding Level of Care Code Est Pt Level 3 (64096) Diagnoses Obesity (BMI 30-39.9) E66.9
[2023-10-30 08:22] VITALS: BP 138/89; PULSE 85; TEMP 35.9; O2SAT 98; BMI 35.8
== END 2023-10-30 08:51 | disposition home or self-care (01) ==
PROVIDERS: Visit Provider Physician Assistant Surgical
DX: E66.9 Obesity, unspecified (principal); Z68.35 Body mass index [BMI] 35.0-35.9, adult
CPT/HCPCS: 99213

== ENCOUNTER → 2023-10-30 08:15 | Outpatient (BNVA) | payer MEDICAID, SELFPAY | PROVIDERS: Visit Provider Physician Assistant Surgical | DX: E66.9 Obesity, unspecified (principal); Z68.35 Body mass index [BMI] 35.0-35.9, adult | CPT/HCPCS: 99212 ==

== ENCOUNTER 2023-11-20 08:35 | Outpatient (AMB) | payer MEDICAID, SELFPAY ==
--- NOTE | 2023-11-19 18:07 | MHC.OFFVISWM ---
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 ?I spent 20 minutes speaking with the patient on the phone plus an additional 20 minutes reviewing and updating records for a total of 40 minutes HPI Comments History of Present Illness Details Overall weight loss: 17.4lbs, or 7.27% TBWL Is doing one Celebrate Rebuild protein shake with 2 scoops in almond milk, 2 Celebrate protein bars and one meal (8 forks of meat and 8 forks of salad or vegetables) Exercise: treadmill for 350-400 calories 5 days per week PFSH Surgical History No history of previous surgery Family History Mother Cancer Hypertension Diabetes Father Hypertension Son Asthma Daughter Asthma Social History Alcohol intake: never Patient Tobacco Use Status: Never used Tobacco Physical Exam Vital Signs: BMI result Body Mass Index 34.8 Assessment & Plan Assessment & Plan (1) Obesity (BMI 30-39.9): Code(s): E66.9 - Obesity, unspecified Plan: 1. Plan for lap sleeve gastrectomy including upper GI endoscopy. All tests has been completed and reviewed and the patient is cleared for the surgery. ?If diaphragmatic or ventral hernias are present at time of surgery, these will be repaired laparoscopically as well. Risks and complications were discussed in detail including possible conversion to an open procedure, anastomotic leak, bleeding requiring transfusion, small bowel obstruction, , DVT and pulmonary embolism, cardiac, or pulmonary complications, as half-way complications such as anastomotic ulcer, insufficient weight loss and vitamin deficiencies. I emphasized the importance of close follow-up, adherence to instructions and good communication. So far he has proven to be an excellent communicator and very compliant with all our directions accomplishing a great weight loss. I believe that he is an excellent candidate and he is ready. 2. Continue same nutritional plan of one Celebrate Rebuild protein shake with 2 scoops in almond milk, 2 Celebrate protein bars and one meal (8 forks of meat and 8 forks of salad or vegetables) 3. Exercise: Continue treadmill for 5 days per week burning always 400 calories. Goal is to burn 2000 calories per week on treadmill 4. Continue to send me weight measurements weekly on Fridays Telehealth Telehealth Location of provider rendering services: practice address Location of patient: address on file Patient Identification confirmed using: Name, : Yes Telehealth method: voice only Patient verbally consented to treatment: Yes Patient verbally consented to billing insurance company: Yes Patient informed of any privacy concerns related to visit: Yes Minutes spent on Phone/Video with Pt.: 40 Coding Level of Care Code Tele Est Pt Level 4 (12730) Diagnoses Obesity (BMI 30-39.9) E66.9 Time Spent (min) 40 Comment With a Citizen Of [place] 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
[2023-11-19 18:19] VITALS: BMI 34.8
== END 2023-11-20 08:41 | disposition home or self-care (01) ==
LOC: HO.HBS 08:35
PROVIDERS: Visit Provider Surgery
DX: E66.9 Obesity, unspecified (principal); Z68.34 Body mass index [BMI] 34.0-34.9, adult
CPT/HCPCS: 99214

== ENCOUNTER → 2023-11-20 08:35 | Outpatient (BNVA) | payer MEDICAID, SELFPAY | PROVIDERS: Visit Provider Surgery ==

== ENCOUNTER 2023-11-28 11:08 | Outpatient (AMB) | payer MEDICAID, SELFPAY ==
[2023-11-28 15:10] VITALS: BMI 34.3
--- NOTE | 2023-11-28 15:10 | A.OFFVIS_ITS ---
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 ?I spent 15 minutes speaking with the patient on the phone plus an additional 15 minutes reviewing and updating records for a total of 30 minutes HPI Comments History of Present Illness Details Overall weight loss: 20lbs, or 8.35% TBWL Is doing one Celebrate Rebuild protein shake with 2 scoops in almond milk, 2 Celebrate protein bars and one meal (8 forks of meat and 8 forks of salad or vegetables) Exercise: treadmill for 350-400 calories 5 days per week PFSH Surgical History No history of previous surgery Family History Mother Cancer Hypertension Diabetes Father Hypertension Son Asthma Daughter Asthma Social History Alcohol intake: never Patient Tobacco Use Status: Never used Tobacco Physical Exam Vital Signs: BMI result Body Mass Index 34.3 Assessment & Plan Assessment & Plan (1) Obesity (BMI 30-39.9): Code(s): E66.9 - Obesity, unspecified Plan: 1. Plan for lap sleeve gastrectomy including upper GI endoscopy. All tests has been completed and reviewed and the patient is cleared for the surgery. If diaphragmatic or ventral hernias are present at time of surgery, these will be repaired laparoscopically as well. Risks and complications were discussed in detail including possible conversion to an open procedure, anastomotic leak, bleeding requiring transfusion, small bowel obstruction, , DVT and pulmonary embolism, cardiac, or pulmonary complications, as shelter complications such as anastomotic ulcer, insufficient weight loss and vitamin deficiencies. I emphasized the importance of close follow-up, adherence to inst ructions and good communication. So far he has proven to be an excellent communicator and very compliant with all our directions accomplishing a great weight loss. I believe that he is an excellent candidate and he is ready. 2. Preop prescriptions were provided and explained the purpose of each one. Need to be purchased preop. Start Pantoprazole now as you get it from the pharmacy, 1 pill per day. Sucralfate and Zofran are for after surgery as needed. 3. Bowel prep: please do 7 packets of Miralax mixing each one with a an 8oz glass of water, crystal light, gatorade zero, or propel on 12/05/23 and the same amount on 12/06/23. The Miralax you begin with one packet at a time in 8oz water or crystal light, gatorade zero, or propel as early in the day as you can and you do them back to back until you finish them. Continue the protein shakes during the bowel prep. 4. Needs to purchase 1oz medicine cups . 5. Needs to purchase Children's liquid Tylenol for postop pain control. 6. Avoid aspirin, motrin, Advil, Aleve, Ibuprofen, Naproxyn. Tylenol is OK. 7. He needs to purchase the Celebrate 4:1 protein shakes from the hospital's gift shop. 8. Will do basic preop blood work-up any day between Monday11/28/23 and Monday12/01/23 fasting for 12 hours and is scheduled to see the Anesthesiologist prior to the day of surgery. 9. Importance of adherence to postop folllow-up and recommendations was underscored and he understands that . 10. Stop food and bars as of tomorrow 11/28/23 and continue with 2 Celebrate REBUILD protein shakes (ONE scoop EACH in 8oz almond milk) at 1pm-3pm and 4pm-6p m and three more Celebrate REBUILD protein shakes with TWO scoops EACH in 8oz almond milk at 7pm-9pm, 10pm-12am and 1am-3am 11. No soups, broths or V8 12. The patient's medical history has been reviewed and they are considered low risk for post op DVT and therefore DVT prophylaxis is not considered necessary. Travel after surgery was reviewed. The patient has not disclosed any travel plans during the first 30 days after surgery and they have been advised that within the first 30 days after surgery any bus, plane, train or car travel over 2 hours in duration is contraindicated due to the possibility of developing blood clots from immobility. Any travel, needs to include periods of ambulation of 10 minutes in duration every 2 hours. Patient was instructed to discuss any plans for travel during this period with their bariatric surgeon. 13. Please take at the day of surgery the following medications: NONE 14. Absolutely no smoking or vaping, or marijuana until the surgery and for at least the first 4 weeks. Only nicotine patches are allowed. 15. Send me weight measurements on Monday12/01/23 and then on 12/07/23 the day of surgery before you go to the hospital. 16. Avoid any steroids by mouth for any reason. Let me know if someone prescribes them to you 17. These instructions supersede anything else you read in the handbook, anything you watched in videos or classes or you were told by any other provider. If there is any conflict, you follow the above instructions and nothing else. Telehealth Telehealth Location of provider rendering services: practice address Location of patient: address on file Patient Identification confirmed using: Name, : Yes Telehealth method: voice only Patient verbally consented to treatment: Yes Patient verbally consented to billing insurance company: Yes Patient informed of any privacy concerns related to visit: Yes Minutes spent on Phone/Video with Pt.: 30 Coding Level of Care Code Tele Est Pt Level 4 (58514) Diagnoses Obesity (BMI 30-39.9) E66.9 Time Spent (min) 30
== END 2023-11-28 18:53 | disposition home or self-care (01) ==
LOC: HO.HBS 11:13
PROVIDERS: Visit Provider Surgery
DX: E66.9 Obesity, unspecified (principal); Z68.34 Body mass index [BMI] 34.0-34.9, adult
CPT/HCPCS: 99024

== ENCOUNTER → 2023-11-28 11:08 | Outpatient (BNVA) | payer MEDICAID, SELFPAY | PROVIDERS: Visit Provider Surgery ==

== ENCOUNTER → 2023-12-01 14:30 | Outpatient (BNVA) | payer MEDICAID, SELFPAY | PROVIDERS: Visit Provider Physician Assistant Surgical ==

== ENCOUNTER 2023-12-07 06:02 | Inpatient (IN) | payer MEDICAID, SELFPAY ==
[2023-11-30 10:44] VITALS: BMI 34.5
[2023-12-01 14:22] LABS: MANUAL DIFF FLAG NO
[2023-12-01 15:06] LABS: Basophils Absolute Auto 0.1 X10*3/uL (0.0-0.2); Basophils Percent Auto 0.8 % (0-2); Eosinophils Absolute Auto 0.1 X10*3/uL (0.0-0.4); Hematocrit 45.2 % (42.0-52.0); Hemoglobin 15.2 g/dl (14.0-18.0); Imm Gran Abs Auto 0.04 X10*3/uL (0.00-0.03); Imm Gran Pct Auto 0.4 % (0.0-0.4); Lymphocytes Absolute Auto 2.6 X10*3/uL (1.2-4.9); Mean Corpuscular HGB Conc 33.6 g/dl (31.0-36.0); Mean Corpuscular Hemoglobin 28.6 pg (27.0-33.0); Mean Platelet Volume 10.3 fL (9.4-12.4); Monocytes Absolute Auto 0.7 X10*3/uL (0.1-1.2); Monocytes Percent Auto 6.8 % (2-11); Neutrophils Absolute Auto 6.2 x10*3/uL (2.0-8.3); Platelet Count 447 X10*3/uL (160-400); Red Blood Count 5.32 X10*6/uL (4.60-5.80); Red Cell Distribution Width 12.9 % (11.0-16.0); White Blood Count 9.8 X10*3/uL (4.8-10.8)
[2023-12-01 15:21] LABS: INTERNATIONAL NORM RATIO 1.1 (0.9-1.1); Prothrombin Time 13.2 SEC (11.1-13.3)
[2023-12-01 15:23] LABS: Estimated Average Glucose 108 mg/dL; Hemoglobin A1c % 5.4 % (<6.0); Partial Thromboplastin Time 32.6 SEC (26.0-36.8)
[2023-12-01 15:51] LABS: Alanine Aminotransferase 17 U/L (0-40); Albumin Level 4.1 g/dL (3.5-5.0); Alkaline Phosphatase 75 U/L (39-117); Anion Gap 13 (12-20); Aspartate Amino Transferase 14 U/L (5-37); Bilirubin Total 1.2 mg/dL (0.0-1.0); Blood Urea Nitrogen 12 mg/dL (9-16); C Reactive Protein 1.85 mg/dL (< or = 0.50); Calcium 9.6 mg/dL (8.4-10.2); Carbon Dioxide 26 mmol/L (22-29); Chloride 105 mmol/L (96-108); Cholesterol 117 mg/dL (<200); Creatinine Clr Calc Pharmacy 108.3; Estimated Glomerular Filt Rate > 60; Glucose Random 93 mg/dL (60-115); HDL Cholesterol 42 mg/dL (>40); LDL Cholesterol Calculated 63 mg/dL (<100); Potassium 5.2 mmol/L (3.3-5.1); Sodium 139 mmol/L (135-145); Total Protein 7.5 g/dL (6.5-8.0); Triglycerides 60 mg/dL (<150)
[2023-12-01 15:59] LABS: Insulin 7 uU/mL (2-29); TSH reflex Free T4 3.43 uIU/mL (0.32-4.0)
--- NOTE | 2023-12-06 09:40 | HO.ANESPROP2 ---
Documented by User: Dahlia Dumont NP 12/06/23 09:41 HPI - Anesthesia Eval Consult details Narrative: 38yo M for Gastrectomy Sleeve,EGD,possible diaphragmatic hernia,possible ventral hernia,possible open, PMFSH Active Problems Active Problems: All Active Problems (Updated 11/30/23 @ 10:43 by Sherri Abernathy RN) Adjustment disorder (Acute) HTN (hypertension) (Acute) Snoring (Acute) Obesity (BMI 30-39.9) (Acute) Past Medical History Medical History Obesity Snoring HTN (hypertension) Adjustment disorder Family History Family History Mother Cancer Hypertension Diabetes Father Hypertension Son Asthma Daughter Asthma Surgical History Surgical History No history of previous surgery Social History Social History Household Members: Family Household Members Other:: son Housing: Apartment 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: Yes (son, will have help post-op) Do you presently have visiting nurse or other home services: No Alcohol intake: never Patient Tobacco Use Status: Never used Tobacco Use of substances other than those prescribed or required for medical reasons: No Currently Displaying Signs/Symptoms of Drug Intoxication Withdrawal: No Do you feel safe in your current relationship?: No Current Relationship Are you DNR?: No Advance Directives: No Advance Directives Information Provided: Yes Advance Directives on File: No Do you have thoughts of harming others: None Do you have a plan to hurt others: No Plan Recently lost weight without trying: No Meds Allergies Allergy/AdvReac Type Severity Reaction Status Date / Time No Known Allergies Allergy Verified 11/30/23 10:44 Home Medications Medication Instructions Recorded Confirmed Last Taken Type vitamin A palmitate 3,000 mcg 10,000 mcg PO DAILY 12/07/23 12/07/23 12/06/23 History (10,000 unit) capsule Exam Height,Weight and Vital Signs: Height 5 ft 7 in Weight 99.79 kg Pertinent Lab Results Pertinent Lab Results: Laboratory Tests 12/01/23 12/01/23 14:15 14:20 WBC 9.8 RBC 5.32 Hgb 15.2 Hct 45.2 MCV 85.0 MCH 28.6 MCHC 33.6 RDW 12.9 Plt Count 447 H D MPV 10.3 Immature Gran % (Auto) 0.4 Neut % (Auto) 64.0 Lymph % (Auto) 27.0 [place] % (Auto) 6.8 Eos % (Auto) 1.0 Baso % (Auto) 0.8 Lymph # (Auto) 2.6 [place] # (Auto) 0.7 Eos # (Auto) 0.1 Baso # (Auto) 0.1 Abs Immat Gran (auto) 0.04 H Absolute Neuts (auto) 6.2 Absolute Nucleated RBC 0.000 Nucleated RBC % (auto) 0.0 PT 13.2 INR 1.1 APTT 32.6 Sodium 139 Potassium 5.2 H Chloride 105 Carbon Dioxide 26 Anion Gap 13 BUN 12 Creatinine 1.03 Estim Creat Clear Calc 108.3 Estimated GFR > 60 Random Glucose 93 Estimat Average Glucose 108 Hemoglobin A1c % 5.4 Insulin Level 7 Calcium 9.6 Total Bilirubin 1.2 H AST 14 ALT 17 Alkaline Phosphatase 75 C-Reactive Protein 1.85 H Total Protein 7.5 Albumin 4.1 Triglycerides 60 Cholesterol 117 LDL Cholesterol, Calc 63 HDL Cholesterol 42 TSH 3.43 Blood Type O Positive Antibody Screen NEGATIVE Narrative Narrative: EKG 08/2023 Vent. Rate : 072 BPM Atrial Rate : 072 BPM P-R Int : 146 ms QRS Dur : 084 ms QT Int : 360 ms P-R-T Axes : 046 016 005 degrees QTc Int : 394 ms Normal sinus rhythm Normal ECG No previous ECGs available Assessment and Plan Assessment Anesthesia Assessment: Chart Reviewed Documented by User: Daja Gannon MD 12/08/23 07:54 HPI - Anesthesia Eval Consult details Narrative: 38yo M for EGD, Laparoscopic Sleeve Gastrectomy, possible diaphragmatic hernia repair, possible ventral hernia, possible open PMFSH Active Problems Active Problems: All Active Problems (Updated 12/07/23 @ 07:18 by Daja Gannon MD) Adjustment disorder (Acute) HTN (hypertension) (Acute) Snoring (Acute) Obesity (BMI 30-39.9) (Acute) BMI 34.5 Past Medical History Medical History Obesity Snoring HTN (hypertension) Adjustment disorder Family History Family History Mother Cancer Hypertension Diabetes Father Hypertension Son Asthma Daughter Asthma Family history of problems with anesthesia: No Surgical History Surgical History No history of previous surgery History of Problems with Anesthesia: No Social History Social History Household Members: Family Household Members Other:: son Housing: Apartment 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: Yes (son, will have help post-op) Do you presently have visiting nurse or other home services: No Alcohol intake: never Patient Tobacco Use Status: Never used Tobacco Use of substances other than those prescribed or required for medical reasons: No Currently Displaying Signs/Symptoms of Drug Intoxication Withdrawal: No Do you feel safe in your current relationship?: No Current Relationship Are you DNR?: No Advance Directives: No Advance Directives Information Provided: Yes Advance Directives on File: No Do you have thoughts of harming others: None Do you have a plan to hurt others: No Plan Recently lost weight without trying: No Meds Allergies Allergy/AdvReac Type Severity Reaction Status Date / Time No Known Allergies Allergy Verified 11/30/23 10:44 Home Medications Medication Instructions Recorded Confirmed Last Taken Type vitamin A palmitate 3,000 mcg 10,000 mcg PO DAILY 12/07/23 12/07/23 12/06/23 History (10,000 unit) capsule Exam Height,Weight and Vital Signs: Height 5 ft 7 in Weight 99.79 kg Vital Signs Temp Pulse Resp BP Pulse Ox O2 Del Method 12/07/23 06:15 97.9 F 70 18 149/88 H 97 Room Air Airway Mallampati Class: III (Overbite) TM Dist: >3cm Neck ROM: Full Loose/Missing/Broken Teeth: No (Caps all over. Denies broken, loose, missing teeth) Heart: RRR Lungs: CTAB Assessment and Plan Assessment Anesthesia Assessment: Anesthesia Plan Discussed and Chart Reviewed Final Anesthetic Review Family History of Problems with Anesthesia: No History of Problems with Anesthesia: No NPO: Yes ASA Class: III Final Preanesthetic Review: No Changes in Pt Med Stat, Meds/Allgs Chart Reviewed, Consent Obtained/Reviewed and Anes Risks/Benef Reviewed Patient Risk: Intermediate Procedure Risk: Intermediate Assessment/Block/Sedation in SS: Assess/Block/Sedation- Anesthetic Plan Anesthetic Plan: GA Disposition: Standard PACU and Inp. Admit - Standard Bed
[2023-12-07] VITALS (22 sets, daily range): BP systolic 149–182; BP diastolic 87–111; PULSE 70–89; RESP 13–20; TEMP 36.3–37.1; O2SAT 93–100; BMI 36.9
[2023-12-07] MEDS: Lactated Ringers 1,000 ML 999 ML IV (06:40)
[2023-12-07] MEDS: Aprepitant 32 MG/4.4 ML VIAL IVPUSH (06:46)
--- NOTE | 2023-12-07 07:42 | MHC.SHP ---
Pre-Procedural Eval Section A - 24 Hr Update-Section A only Date of Service: 12/07/23 The patient is an INPATIENT: Yes The patient has been examined within 24 hours of the surgical procedure. The History & Physical has been completed within 30 days and I have reviewed it.: Yes Section B - Complete if H&P > 30 days Chief Complaint: Obesity Relevant Family History (Specify if Yes): No Relevant Social History: None Present Medications: None Medical History: No relevant PMH History of Previous Operations: No relevant previous surgery Allergies: Allergies Allergy/AdvReac Type Severity Reaction Status Date / Time No Known Allergies Allergy Verified 11/30/23 10:44 Review of Systems Sugical H&P ROS: Negative: Constitution, Cardiovascular, Respiratory, Neurological, Psychiatric, Hem-Onc, Allergic/Immunologic, Gastrointestinal, Genitourinary, Musculoskeletal, Integumentary, Endocrine and Eyes/Ears/Nose/Throat Exam Surgical H&P Exam: Normal: HEENT, Normal: Heart, Normal: Lungs, Normal: Extremities, Normal: Abdomen, Normal: Skin and Normal: Neurological Plan Diagnosis/Plan: Unchanged I have reviewed the history and physical and performed a pertinent physical examination on my patient. No changes have occurred unless specified. Time Spent With Patient Time: Total time managing care of this patient today ____ minutes.
--- NOTE | 2023-12-07 07:45 | PHA.MEDREC ---
Pharmacy Consult ? Medication Reconciliation Pharmacy has reviewed the medication reconciliation.
--- NOTE | 2023-12-07 07:57 | PM.OP ---
Brief Operative Note Date of Service: 12/07/23 Pre-op diagnosis: Severe obesity with comorbidities (see below) Post-op diagnosis: same Procedure: INITIAL PATIENT BMI ON PRESENTATION AT OUR OFFICE: 37.5 kg/m2 LAST BMI BEFORE SURGERY: 34.4 kg/m2 COMORBIDITIES: sleep apnea, hypertension, GERD, liver steatosis ?The patient presented to the Weight Management Program with significant obesity that was negatively impacting the patient's comorbidities as listed above.? The program is a phased program with a special focus on preoperative medical weight management to promote substantial weight loss and prepare the patients for the second phase of the program: bariatric surgery. The patient participated in an intensive weekly lifestyle ?intervention and exercise program during which the patient ?has lost between the initial office visit and the last preoperative visit 23lbs, or 9.6% of initial actual body weight. It was deemed appropriate for the patient to now have bariatric surgery. In light of the current Covid-19 pandemic and the well documented strong association of obesity and increased risk of worse outcomes if infected with Covid-19 (REFERENCES:https://pubmed.ncbi.nlm.nih.gov/64263726/,?https://pubmed.ncbi.nlm.nih.gov/43651254/), any delay in undergoing bariatric surgery may lead to the patient's worsening health condition and increased?risk of more severe Covid-19 disease if infected. In addition a recent?study from [facility] published in [facility] on 09/13/2021 ([email or web address]) found that, among patients with obesity, substantial weight loss achieved with surgery was associated with improved outcomes of COVID-19 infection. The findings suggest that obesity can be a modifiable risk factor for the severity of COVID-19 infection. In addition, the patient met the BMI-criteria for bariatric surgery based on the BMI on initial presentation. The patient should not be penalized for achieving such weight loss because ?it is not sustainable long-term without surgical intervention and it was achieved in preparation for bariatric surgery ?under my direction and based on my published research ([email or web address] and?[email or web address].soard.org/article/[email or web address])99745-X/pdf) ?that a 10% preoperative weight loss improves long-term weight loss after surgery and reduces perioperative complications.? Insurance carriers such as [facility] have endorsed my recommendations ?and have included in their policies criteria to include a 10% preoperative weight loss requirement. PROCEDURE: Esophago-gastroscopy, laparoscopic sleeve gastrectomy and laparoscopic gastropexy INDICATIONS: This is a 38 year-old male who was electively scheduled for laparoscopic, possibly open sleeve gastrectomy. The risks and complications of the procedure were discussed with the patient in advance, particularly the possibility of ; pulmonary embolism; staple line leak; bleeding; GERD; cardiac, pulmonary, or renal complications; as well as long-term problems such as insufficient weight loss, vitamin deficiency, strictures, or ulcers. The patient understood all the risks, and was in agreement to proceed with surgery. DESCRIPTION OF PROCEDURE: After informed consent was obtained from the patient, the patient was given preoperative antibiotics, and was transferred to the operating room. After successful induction of general anesthesia, pneumatic compression devices were placed on both lower extremities. An upper endoscopy was performed next. The oropharynx and esophagus appeared to be within normal limits. There was no diaphragmatic hernia present consistent with the findings of the preoperative upper GI. The stomach was entered. Then after all fluid and air were suctioned and the stomach was fully decompressed, the scope was withdrawn and secured in the mid esophagus. The patient was then prepped and draped in the usual sterile manner, and abdominal access was established at the right upper quadrant with the Samy technique. A 12 mm blunt port was inserted, and the abdomen was insufflated with CO2 to a pressure of 15 mmHg. Under direct visualization, additional ports were placed, specifically two 5 mm Versi-step ports to the left upper quadrant, and a 5 mm Versi-Step port to the right upper quadrant. 1% lidocaine plain was used to infiltrate all port sites as well as all fascia defects. Following that, the patient was placed in a steep reverse Trendelenburg position. An additional 5 mm port was placed to the right flank for the Mediflex retractor that was used to retract the left lobe of the liver. The gastro-esophageal fat pad was opened with the ultrasonic device (Thmitulerbeat, Olympus) and the anterior esophagus and hiatus were exposed. The angle of His was opened with the ultrasonic device the fundus of the stomach from any diaphragmatic and splenic attachments. I then opened the gastrocolic ligament between the transverse colon and the greater curvature of the stomach with the ultrasonic device to enter the lesser sac and facilitate the ligation of the short gastric vessels. I started at a mid-point along the greater curvature and using the Thunderbeat, all short gastric vessels were divided all the way to the angle of His until the left shi was completely dissected at its entirety. I then divided the gastro-colic ligament distally to a distance of about 3-4 cm proximal to the pylorus. The stomach was then divided transversely with one Endo DANY-45 purple and four DANY-60 articulating purple loads using the Znode stapler and loads. Every effort was made that the gastric sleeve had a tubular shape and an even caliber throughout. Once the sleeve resection was completed, the staple line of the gastric sleeve was reinforced with Hemoclips. The resected stomach was retrieved without difficulty from the Samy port. A gastropexy was then performed in order to prevent postoperative GERD and partial gastric volvulus. Several interrupted 2.0 Surgidac sutures were placed between the sleeve's staple line and the previously divided greater omentum and gastro-colic ligament using the Endo-Stitch device. ?An upper endoscopy was performed. There was no narrowing at the GE junction. The scope was easily advanced all the way to the pylorus which was clearly visualized. There was no narrowing anywhere and the sleeve's caliber was even throughout. The sleeve's staple line was inspected and there was no evidence of ischemia, bleeding or dehiscence. At that point the gastroscope was withdrawn from the patient?s mouth while we were decompressing the bowel and the stomach from any remaining air. I looked into the lesser sac to see how the sleeve was situating and it was situating well. There was no bleeding from the staple line, spleen, or short gastric vessels. The Mediflex retractor was removed, and the undersurface of the liver was inspected and there was no bleeding. The patient was placed in supine position. I closed the fascial defect of the 12 mm port site with a figure of eight #1 Polysorb suture. Then 30cc Ropivacaine plain with 10 mg of Dexamethasone were used to infiltrate the fascial closure as well as all skin incisions. A total of 3.5ml of Zynrelef was used in the Samy port. At this point, the abdomen was deflated, all ports were removed under direct vision, and no bleeding was noted from any of the port sites. The skin incisions were irrigated with saline and were closed with 4-0 absorbable monofilament sutures. Steri-Strips and OpSites were used to cover all incisions. The patient was extubated and was transferred in stable condition to the recovery room for further care. I was present and performed all banuelos parts of the procedure. Mr. Metzger was the university administrative assistant. There were no residents to assist with this case. David Pollard MD, PhD, FACS Surgeon: Ivan Pollard MD Anesthesia: GETA, local and other (TAP block & 3.5ml Zynrelef) Was an Senior Principal used for this Procedure?: No Senior Principal: Debi Christensen Estimated blood loss (mL): 10 IV fluids (mL): 2,500 Urine output (mL): 0 (No Holm to record output) Pathology: other (Stomach) Condition: stable Disposition: PACU
--- NOTE | 2023-12-07 08:01 | P.PNGS_ITS ---
Subjective Subjective Date of Service: 12/08/23 Interval history: Feels well. Mild incisional pain. He is tolerating phase 1 bariatric diet Physical Exam 2 Vital Signs: Vital Signs: Last Vital Signs Temp 97.9 F 12/07/23 06:15 Pulse 70 12/07/23 06:15 Resp 18 12/07/23 06:15 BP 149/88 H 12/07/23 06:15 Pulse Ox 97 12/07/23 06:15 O2 Del Method Room Air 12/07/23 06:15 BMI result Body Mass Index 34.5 GI: Inspection: Yes normal to inspection, Yes incision (cleamn, dry and intact) and Yes obesity Palpation (GI): Soft to palpation Extrem: Right lower extremity: normal to inspection (no calf tenderness) L eft lower extremity: normal to inspection (no calf tenderness) Objective Data Active Medications Lactated Ringer's (Lr) 1,000 mls @ 100 mls/hr IVCONT .Q10H SHEA Labs 12/08/23 06:17 12/08/23 06:17 Procedures Date of Service Date of Service: 12/08/23 Progress Note: A&P Assessment and plan (1) Obesity (BMI 30-39.9): Status: Acute Assessment and Plan: s/p laparoscopic sleeve gastrectomy and gastropexy Doing well Will check am labs and if OK the patient will be discharged home (2) HTN (hypertension): Status: Acute (3) GERD (gastroesophageal reflux disease): Status: Acute (4) Steatosis, liver: Status: Acute (5) Sleep apnea: Status: Acute (6) S/P laparoscopic sleeve gastrectomy: Status: Acute Time Spent With Patient Time: Total time managing care of this patient today ____ minutes. Quality Stroke Does the patient have a stroke diagnosis?: No VTE Prior VTE?: No VTE Risk Level:: Surgical - moderate VTE Device Contraindication: N/A - Device Ordered VTE Drug Contraindication: Treatment Not Indicated
--- NOTE | 2023-12-07 10:26 | PM.DS ---
DS: Providers Provider Date of Service: 12/08/23 Date of admission: 12/07/23 06:02 Primary care physician: None Physician DS: Diagnosis Discharge Diagnosis (1) Obesity (BMI 30-39.9): Status: Acute (2) HTN (hypertension): Status: Acute (3) GERD (gastroesophageal reflux disease): Status: Acute (4) Steatosis, liver: Status: Acute (5) Sleep apnea: Status: Acute DS: Summary Hospital Course Hospital Course: ADMITTING DIAGNOSIS: obesity, htn, joan ? DISCHARGE DIAGNOSIS: same, s/p laparoscopic sleeve gastrectomy ? PAST SURGICAL HISTORY: none ? PROCEDURE: upper endoscopy, laparoscopic sleeve gastrectomy ? DISCHARGE SUMMARY: ? History of Present Illness: ? The patient is a?38 year-old man with a BMI of?37.5 kg/m2 and associated co-morbidities as described above. The patient had extensive work-up,lost?20.1 lbs preoperatively and was electively scheduled for laparoscopic, possible open sleeve gastrectomy and gastropexy. Risks and complications of the surgery were discussed with the patient in advance, particularly the possibility of , pulmonary embolism, anastomotic leak, bleeding, bowel injury, GERD, cardiac, renal or pulmonary complications. The patient understood all the risks and was in agreement with the surgical plan. ? Hospital Course: ? The patient underwent an uneventful laparoscopic sleeve gastrectomy with gastropexy on the day of admission. Postoperatively, the patient was transferred to the surgical floor. The patient received IV Acetaminophen and IV dilaudid for pain control. Patient was started on bariatric phase 1 diet POD #0. On postoperative day one, the patient was feeling well without nausea, vomiting, fevers, or tachycardia. The patient had some mild incisional pain and the abdomen was soft. ? On the morning of postoperative day one, the patient was continued on 1 ounce of water or ice every half hour. During the day, the patient did fairly well, having some incisional pain, but able to ambulate adequately and to tolerate liquids well. ? Since the patient is doing well, we decided that the patient was ready to be discharged. The patient was given instructions to follow-up with me next week and to call my office for any fever over 101, persistent abdominal pain, nausea, vomiting, GERD, symptoms of DVT such as calf tenderness, or leg swelling, or pulmonary embolism such as chest pain or shortness of breath. The patient was also instructed to drink 40-60 ounces of liquids per day using the 1-ounce cups. The patient had been given prescriptions for Tylenol for pain, Zofran prn for nausea, and pantoprazole and carafate previously. The patient was encouraged to ambulate and use the incentive spirometer. The patient was allowed to shower, but no baths, and encouraged to stay active at home. All of these instructions were given to the patient personally. All questions were answered and the patient understood all instructions, the instructions were also given to the patient in print. Time Attestation Discharge Coordination Time (in mins): 25 Quality: Safe Use of Opioids Does Pt have an Active Cancer Diagnosis on the Problem List?: No Quality: Stroke Does the patient have a stroke diagnosis?: No Physical Exam Vital Signs: Vital Signs: Last Vital Signs Temp 97.9 F 12/07/23 06:15 Pulse 70 12/07/23 06:15 Resp 18 12/07/23 06:15 BP 149/88 H 12/07/23 06:15 Pulse Ox 97 12/07/23 06:15 O2 Del Method Room Air 12/07/23 06:15 BMI result Body Mass Index 34.5 DS: Data Data Completed and Pending Pending studies at discharge: Pending at discharge 12/07/23 09:23 Surgical [PTH] Routine Discharge Plan Discharge Anticipated Discharge Date/Time: 12/08/23 10:00 Patient Disposition: Home, Self-Care Discharge Diagnosis: s/p laparoscopic sleeve gastrectomy Referrals: Physician,None [Primary Care Provider] - 1 Week Discharge Medications: Continued pantoprazole 40 mg tablet,delayed release (DR/EC) 40 mg PO DAILY Qty: 90 0RF sucralfate 100 mg/mL suspension 10 ml PO BID Qty: 600 2RF ondansetron 4 mg tablet,disintegrating 4 mg PO Q12H Qty: 20 0RF Rx Instructions: Only take one every 12 hours as needed if you have nausea Held atenolol 25 mg tablet 25 mg PO DAILY Qty: 30 2RF Hold Instructions: Resume on 12/09/23. Check your blood pressure every morning as soon as you wake up and send it to Dr. Pollard. Do no take the blood pressure medication if the blood pressure is below 120/70. Wait every day to hear back from Dr. Pollard before you take the medication. Discontinued cholecalciferol (vitamin D3) 125 mcg (5,000 unit) capsule 125 mcg PO DAILY 90 Days Qty: 90 1RF polyethylene glycol 3350 [Miralax] 17 gram powder in packet 17 g PO DAILY Qty: 14 0RF Rx Instructions: Mix each packet with 8oz of water, Crystal light, or Gatorade zero, or Propel and do 7 packets on 12/05/23 and another 7 packets on 12/06/23 vitamin A palmitate 3,000 mcg (10,000 unit) capsule 10,000 mcg PO DAILY Discharge Orders: Discharge Order (Routine); Ordered 12/08/23 Ordered By: Ivan Pollard Activity on Discharge: No heavy lifting Stand Alone Forms: Patient Portal Discharge page Care Plan Goals: weight loss Health Concerns: obesity Plan of Treatment: No tub baths, sex or returning to work until discussed at first post op appointment. No exercise, alcohol, tobacco or illegal drug use. Continue to use incentive spirometer hourly while awake. Walk in home for 5- 10 minutes every 2 hours during the first week. Follow all instructions in the bariatric handbook and call with any questions.Discharge Instructions 1. Please call your doctor or come back to the emergency room should any new symptoms arise. 2. You will receive a courtesy call from [facility] 24-48 hours after discharge. 3. Activity: abstain from alcohol, practice limited stair climbing, no bending, no driving, no exercise, no illicit substances, no lifting, no sex, no tub bath, no work. 4. Diet: continue as discussed with Dr. Pollard. 5. Dressing Change/Wound Care: Your incision is covered by clear bandages and guaze underneath. If the area is tender, you may apply an ice pack for short intervals (no more than 20 minutes on, followed by at least 20 minutes off). Do not apply heat. Do not use creams, lotions, or topical antibiotics unless instructed to do so by your surgeon. These can cause infection or allergic reaction. 6. Call your doctor if: - Your temperature exceeds 101.5 F - You experience excessive pain or swelling - You have an unexpected reaction to medication - You have excessive bleeding - You experience continued vomiting/nausea - Your incision begins to separate - Your incision shows signs of infection such as increased redness, swelling, excessive pain, heat, or drainage (light blood or clear fluid is normal) 7. General instructions: No lifting greater than 5 lbs for 1 week and not more than 20lbs the next 3?weeks. No driving until seen at the office in 5-7 days after surgery. If you do not move your bowels in the next 2 days, please tell?Dr. Pollard. Please walk around your home every hour or two to prevent blood clots from forming in your legs. You do not need to wake from sleeping to walk. Please sleep in a bed or couch to prevent kinking at the hips and knees. Please take your incentive spirometer (your lung bleaching machine operator) home with you and use it for the next few days to prevent pneumonia. You may shower, no hot tubs, baths or swimming pools.?Please follow the post op diet instructions you are?given by Dr Pollard? and text me daily at 5-6pm for an update.?If you have any issues or concerns or questions please communicate this to him via text.? The Celebrate shakes have all of the bariatric vitamins you need if you consume these shakes. If you are drinking other protein shakes, you will need to purchase the Celebrate multivitamins and calcium that are available in the hospital gift shop on the first floor of the main hospital.??Do not take anything without first discussing with Dr Pollard. Please make sure you are consuming at least 40 ounces of fluids per day starting the?day AFTER your discharge from the hospital. Always drink 1-2 ml per minute using the 5ml?syringe. If you drink faster you may experience?bloating,?gas pain, burping, nausea or heartburn. In that case please slow down your pace and use the syringe to?understand better the?proper?pace and volume of drinking. Do not hesitate to contact the office with any questions at . The patient's medical history has been reviewed and they are considered low risk for post op DVT and therefore DVT prophylaxis is not considered necessary. Travel after surgery was reviewed. The patient has not disclosed any travel plans during the first 30 days after surgery and they have been advised that within the first 30 days after surgery any bus, plane, train or car travel over 2 hours in duration is contraindicated due to the possibility of developing blood clots from immobility. Any travel, needs to include periods of ambulation of 10 minutes in duration every 2 hours.? The patient was instructed to discuss any plans for travel during this period with their bariatric surgeon. Assessment: stable s/p laparoscopic sleeve gastrectomy Discharge Date/Time: 12/08/23 12:30
[2023-12-07 11:25] LABS: Hematocrit 40.6 % (42.0-52.0); Hemoglobin 13.7 g/dl (14.0-18.0)
[2023-12-07 11:35] LABS: Anion Gap 12 (12-20); Blood Urea Nitrogen 9 mg/dL (9-16); Calcium 9.1 mg/dL (8.4-10.2); Carbon Dioxide 25 mmol/L (22-29); Chloride 105 mmol/L (96-108); Creatinine Clr Calc Pharmacy 128.3; Estimated Glomerular Filt Rate > 60; Glucose Random 145 mg/dL (60-115); Potassium 4.2 mmol/L (3.3-5.1); Sodium 138 mmol/L (135-145)
[2023-12-07] MEDS: hydrALAZINE HCl 20 MG/ML VIAL 10 MG IVPUSH (12:03)
[2023-12-07] MEDS: ceFAZolin Sodium/Dextrose,Iso 2 GM/50 ML PIGGYBACK IV (14:07)
[2023-12-07] MEDS: Acetaminophen 1,000 MG/100 ML PIGGYBACK 16.7 MG IV ×2 (14:46→21:10)
[2023-12-07] MEDS: Lactated Ringers 1,000 ML 100 ML IVCONT (14:47)
--- NOTE | 2023-12-07 14:57 | PC.NURSE ---
Pt voided and is ambulating.
--- NOTE | 2023-12-07 15:02 | PC.NURSE ---
ALEXANDRE Metzger aware of Pt's High BPs. States will order Beta Janie.
[2023-12-07] MEDS: Metoprolol Tartrate 25 MG TABLET PO (15:37)
[2023-12-07] MEDS: HYDROmorphone HCl 0.5 MG/0.5 ML SYRINGE 0.25 MG IVPUSH (19:35)
[2023-12-07] MEDS: Famotidine/PF 20 MG/2 ML VIAL IVPUSH (19:37)
[2023-12-08] MEDS: Lactated Ringers 1,000 ML 100 ML IVCONT (01:10)
[2023-12-08] MEDS: Metoprolol Tartrate 25 MG TABLET PO (01:48)
[2023-12-08] MEDS: HYDROmorphone HCl 0.5 MG/0.5 ML SYRINGE 0.25 MG IVPUSH (03:53)
[2023-12-08 03:58] VITALS: BP 165/88; PULSE 77; RESP 18; TEMP 36.7; O2SAT 98
[2023-12-08] MEDS: Acetaminophen 1,000 MG/100 ML PIGGYBACK 16.7 MG IV (04:56)
[2023-12-08 06:21] LABS: MANUAL DIFF FLAG NO
[2023-12-08 06:31] LABS: Basophils Percent Auto 0.1 % (0-2); Hematocrit 37.2 % (42.0-52.0); Hemoglobin 12.8 g/dl (14.0-18.0); Imm Gran Abs Auto 0.07 X10*3/uL (0.00-0.03); Imm Gran Pct Auto 0.5 % (0.0-0.4); Lymphocytes Absolute Auto 1.1 X10*3/uL (1.2-4.9); Mean Corpuscular HGB Conc 34.4 g/dl (31.0-36.0); Mean Corpuscular Hemoglobin 29.2 pg (27.0-33.0); Mean Corpuscular Volume 84.7 fL (80.0-98.0); Mean Platelet Volume 10.4 fL (9.4-12.4); Monocytes Absolute Auto 0.7 X10*3/uL (0.1-1.2); Monocytes Percent Auto 5.1 % (2-11); Neutrophils Absolute Auto 11.7 x10*3/uL (2.0-8.3); Neutrophils Percent Auto 86.3 % (45-73); Platelet Count 394 X10*3/uL (160-400); Red Blood Count 4.39 X10*6/uL (4.60-5.80); Red Cell Distribution Width 12.6 % (11.0-16.0); White Blood Count 13.6 X10*3/uL (4.8-10.8)
[2023-12-08 06:43] LABS: Anion Gap 13 (12-20); Blood Urea Nitrogen 9 mg/dL (9-16); Calcium 9.1 mg/dL (8.4-10.2); Carbon Dioxide 24 mmol/L (22-29); Chloride 106 mmol/L (96-108); Creatinine Clr Calc Pharmacy 134.3; Estimated Glomerular Filt Rate > 60; Glucose Random 105 mg/dL (60-115); Potassium 4.6 mmol/L (3.3-5.1); Sodium 138 mmol/L (135-145)
[2023-12-08] MEDS: Famotidine/PF 20 MG/2 ML VIAL IVPUSH (06:59)
[2023-12-08] MEDS: atenoloL 25 MG TABLET PO (06:59)
[2023-12-08] MEDS: 0.9 % Sodium Chloride Flush 3 ML SYRINGE IVFLUSH (07:00)
[2023-12-08 07:08] VITALS: BP 158/98; PULSE 60; RESP 14; TEMP 36.5; O2SAT 98
--- NOTE | 2023-12-08 07:55 | HO.POSTANES ---
Post Anesthesia Evaluation Post Anesthesia Evaluation Date of Service: 12/08/23 Vital Signs: Vital Signs Temp Pulse Resp BP Pulse Ox O2 Del Method 12/08/23 07:08 97.7 F 60 14 158/98 H 98 Room Air 12/08/23 03:58 98.0 F 77 18 165/88 H 98 Room Air 12/07/23 23:23 98.3 F 82 16 169/88 H 98 Room Air Anesthesia: General Endotracheal-GETA Mental Status: Awake Pain Control: Satisfactory Nausea/Vomiting: None Hydration: Adequate Anesthesia-Related Issues: No Anes. Related Issues
--- NOTE | 2023-12-08 09:28 | MHC.CM.PN ---
Addendum entered by Maricarmen Leggett 12/08/23 11:24: DP: PT HAS BEEN MEDICALLY CLEARED FOR DC HOME, NO SERVICES. HAS OWN [facility]IDE HOME Original Note: CM MET WITH PT AT BEDSIDE. PT IS INDEPENDENT AT BASELINE, WORKS F/T WITH POSTAL SERVICE. PT DECLINES TO NAME A HCP AT THIS TIME, WILL CONSIDER IN THE FUTURE. EDUCATION PROVIDED. NO PCP BUT HAS UPCOMING APPT WITH A PROVIDER AT [facility] TO ESTABLISH. DP: HOME, NO SERVICES. PT HAS OWN [facility]IDE HOME. CM WILL CONTINUE TO FOLLOW FOR ANY CHANGE IN DC PLAN/NEEDS.
--- NOTE | 2023-12-08 12:02 | PC.NURSE ---
Provider asked to send scripts electronic to [facility] per patient request.
[2023-12-13 08:41] LABS: Base Excess Bedside Calculated -8 mmol/L (-3-3); Glucose, i-STAT 72 mg/dL (60-115); HCO3 Bedside Calculated 18 mmol/L (22-26); Hematocrit Bedside 27 %PCV (42-52); Hemoglobin Bedside 9.2 g/dL (14.0-18.0); Potassium Bedside 4.1 mmol/L (3.3-5.1); Sodium Bedside 138 mmol/L (135-145); TCO2 Bedside 19 mmol/L (24-29); pCO2 Bedside 35 mmhg (35-48); pH Bedside 7.33 (7.35-7.45)
[2023-12-14 09:43] LABS: pO2 Bedside < 50 mmhg (83-108)
== END 2023-12-08 12:30 | disposition home or self-care (01) | DRG 403 ==
LOC: HO.SSSA 06:29 → HO.S3 10:27
PROVIDERS: Physician Assistant Surgical; Admitting Provider Surgery; Visit Provider Surgery
PROC: 0DB64Z3 Excision of Stomach, Percutaneous Endoscopic Approach, Vertical (ICD-10-PCS; CPT 43845; principal; 2023-12-07 07:30)
DX: E66.01 Morbid (severe) obesity due to excess calories (principal); K76.0 Fatty (change of) liver, not elsewhere classified; G47.33 Obstructive sleep apnea (adult) (pediatric); I10 Essential (primary) hypertension; K21.9 Gastro-esophageal reflux disease without esophagitis; Z68.34 Body mass index [BMI] 34.0-34.9, adult; Z79.899 Other long term (current) drug therapy
CPT/HCPCS: 36415; 80048; 80053; 80061; 83036; 83525; 84443; 85014; 85018; 85025; 85610; 85730; 86140; 86850; 86900; 86901; 88304; 88305; 88307; 88342; A4649; C9088; C9145; J0131; J0360; J0690; J1100; J1170; J2250; J2371; J2405; J2704; J2795; J3010; J7120

== ENCOUNTER → 2023-12-07 06:02 | Outpatient (BNV) | payer MEDICAID, SELFPAY | PROVIDERS: Admitting Provider Surgery; Visit Provider Surgery | DX: E66.9 Obesity, unspecified (principal); Z68.34 Body mass index [BMI] 34.0-34.9, adult | CPT/HCPCS: 43659; 43775; 99024 ==

== ENCOUNTER 2023-12-12 14:33 | Outpatient (AMB) | payer MEDICAID, SELFPAY ==
--- NOTE | 2023-12-12 14:43 | A.OFFVIS_ITS ---
Intake VS Expanded 12/12/23 14:57 BP 141/81 H Blood Pressure Location Rt brachial Blood Pressure Position Sitting Pulse 64 Pulse Source Pulse Oximeter Temp 98.1 F Temperature Source Temporal Artery Scan Pulse Oximetry 99 Oxygen Delivery Method Room Air Height 5 ft 7 in Weight 215 lb BMI 33.7 Body Fat % 36.8 Body Fat Mass 79.2 Fat Free Mass 135.8 Visceral Fat Rating 8.0 Body Water % 45.1 Body Water Mass 97.0 Muscle Mass/Score 129.0 Basal Metabolic Rate/Score 1,865 Intake Visit Reasons: (OV) PO LSG 12/07/2023 Allergies No Known Allergies Allergy (Verified 12/12/23 14:51) HPI HPI Comments History of Present Illness Details Patient is a pleasant 38-year-old male who returns to the office today in follow-up. He is approximately 5 days post sleeve gastrectomy performed on 12/07/[address] Pollard. Overall, he is doing well. He moved his bowels and is no longer requiring Tylenol for pain management. He is tolerating celebrate 3 in 1 protein shakes with 1 scoop each in 8 oz of almond milk and an additional 20 oz of water per day. 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: Yes (son, will have help post-op) Do you presently have visiting nurse or other home services: No Alcohol intake: never Patient Tobacco Use Status: Never used Tobacco service: No Physical Exam Vital Signs: Last Vital Signs Temp 98.1 F 12/12/23 14:57 Pulse 64 12/12/23 14:57 BP 141/81 H 12/12/23 14:57 Pulse Ox 99 12/12/23 14:57 Oxygen Delivery Method Room Air 12/12/23 14:57 BMI result Body Mass Index 33.7 GI Inspection: Yes incision (Clean, dry, intact.) Assessment & Plan Assessment & Plan (1) S/P laparoscopic sleeve gastrectomy: Code(s): Z98.84 - Bariatric surgery status Plan: POD 5 s/p LSG on 12/07/[address] Pollard Weight loss prior to surgery was 20.1 pounds or 9.1 % TBWL. Original weight on 08/02/2023 was 239.4 pounds and op weight was 219.3 pounds. Be sure to text Dr Pollard exactly 1 week after surgery your weight from your home scale so he can adjust your meal plan. Continue meal plan until f/u alana Sheth in 2 weeks May shower, no submersion in bath for another week Continue abdominal binder with activity and exercise for the next 2 weeks. Exercise prior to surgery was treadmill, may resume No abdominal exercises for 6 weeks post operatively Will be emailed link to post op video for review Reminded of the pace of drinking, 2 mL per minute, 1 oz/15 min. Coding Level of Care Code Global (25285) Diagnoses S/P laparoscopic sleeve gastrectomy Z98.84
[2023-12-12 14:57] VITALS: BP 141/81; PULSE 64; TEMP 36.7; O2SAT 99; BMI 33.7
== END 2023-12-12 15:48 | disposition home or self-care (01) ==
PROVIDERS: Visit Provider Physician Assistant Surgical
DX: E66.9 Obesity, unspecified (principal); Z68.33 Body mass index [BMI] 33.0-33.9, adult; Z90.3 Acquired absence of stomach [part of]; Z98.84 Bariatric surgery status
CPT/HCPCS: 99024

== ENCOUNTER → 2023-12-12 14:33 | Outpatient (BNVA) | payer MEDICAID, SELFPAY | PROVIDERS: Visit Provider Physician Assistant Surgical | DX: E66.9 Obesity, unspecified (principal); Z71.3 Dietary counseling and surveillance; Z98.84 Bariatric surgery status | CPT/HCPCS: 99212 ==

== ENCOUNTER → 2024-01-08 15:20 | Outpatient (BNVA) | payer MEDICAID, SELFPAY | PROVIDERS: Visit Provider Physician Assistant Surgical | DX: Z48.815 Encounter for surgical aftercare following surgery on the digestive system (principal); Z98.84 Bariatric surgery status | CPT/HCPCS: 99212 ==

== ENCOUNTER 2024-01-08 15:21 | Outpatient (AMB) | payer MEDICAID, SELFPAY ==
--- NOTE | 2024-01-08 15:21 | MHC.OFFVISWM ---
VS Expanded 01/08/24 15:28 BP 120/71 Blood Pressure Location Rt brachial Blood Pressure Position Sitting Pulse 76 Pulse Source Pulse Oximeter Temp 96.9 F Temperature Source Tympanic Pulse Oximetry 100 Oxygen Delivery Method Room Air Height 5 ft 7 in Weight 200 lb BMI 31.3 Body Fat % 27.3 Body Fat Mass 54.6 Fat Free Mass 145.2 Visceral Fat Rating 12.0 Body Water % 53.0 Body Water Mass 106.0 Muscle Mass/Score 138.0 Basal Metabolic Rate/Score 1,948 Intake Visit Reasons: (ov) po swl 12/07/23 Allergies No Known Allergies Allergy (Verified 12/12/23 14:51) HPI Comments Details: This?a?38?yo male who is s/p LSG without hiatal hernia repair on?12/07/2023. Presents for 1 month post op visit. Weight today is 200 pounds, with a BMI of 31.3. There has been a 39.4 pound weight loss,(initial weight 239.4 pounds) since starting the program on 08/02/2023 reflecting a 16.4% total body weight loss and a weight loss of 19.3 pounds since surgery (operative weight 219.3 pounds) reflecting a 8.8% TBWL since surgery. No complaints of nausea, emesis, abdominal pain or reflux. Reports infrequent but normal bowel movements every 1-2 days. Reports that he has not been taking his atenolol, 25 mg daily for the last several days. Blood pressure today is 120/71. He states he did some abdominal exercises 1 week ago without discussing but experienced increase abdominal pain at the midline incision and he did not do any further abdominal exercises and the pain resolved after 24 hours. Started his new meal plan last week without any advise or direction. He stopped the recommended meal plan due to low blood sugar. Present meal plan includes: 1 scrambled egg w 1/2 slice turkey ham nature [place]borne granola protein bar 6 forks chicken breast, 4 forks cooked onion and peppers 1/2 [place] granola bar 4 scoops celebrate rebuild 2 days on 1 day off. w 8 oz lactaid milk. 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 other at home: Yes (son, will have help post-op) Do you presently have visiting nurse or other home services: No Alcohol intake: never Patient Tobacco Use Status: Never used Tobacco service: No Physical Exam Const General: healthy appearing and no acute distress Resp Effort & Inspection: normal respiratory effort Auscultation: clear to auscultation bilaterally Cardio Rate: regular rate Rhythm: regular rhythm GI Auscultation: normal bowel sounds Extrem General: Yes normal to inspection Assessment & Plan Assessment & Plan (1) S/P laparoscopic sleeve gastrectomy: Code(s): Z98.84 - Bariatric surgery status Category: Surgical Plan: 38-year-old male returns to the office today for 1 month postop appointment. He states that he is not willing to follow the recommended meal plan of protein shakes and protein bars. Changed the meal plan on his own and does not wish to go back. Giving him the best advice possible, we will adjust his meal plan as follows: One scrambled eggs with 2 forks cooked chopped spinach Celebrate protein bar Four forks protein and 4 forks vegetables Another bar Celebrate rebuild shake, 1 scoop in 8 oz of Lactaid milk. Add multivitamin daily. He will text with any concerns or questions. Return to clinic 1 month
[2024-01-08 15:28] VITALS: BP 120/71; PULSE 76; TEMP 36.1; O2SAT 100; BMI 31.3
== END 2024-01-08 16:14 | disposition home or self-care (01) ==
PROVIDERS: Visit Provider Physician Assistant Surgical
DX: Z98.84 Bariatric surgery status (principal)
CPT/HCPCS: 99024

== ENCOUNTER 2024-02-27 11:00 | Outpatient (AMB) | payer MEDICAID, SELFPAY ==
--- NOTE | 2024-02-27 10:55 | A.OFFVIS_ITS ---
VS Expanded 02/27/24 11:00 BP 150/90 H Blood Pressure Location Rt brachial Blood Pressure Position Sitting Pulse 59 Pulse Source Pulse Oximeter Temp 97.1 F Temperature Source Tympanic Pulse Oximetry 95 Oxygen Delivery Method Room Air Height 5 ft 7 in Weight 191 lb 12.8 oz BMI 30.0 Body Fat % 22.5 Body Fat Mass 43.2 Fat Free Mass 148.4 Visceral Fat Rating 9.0 Body Water % 57.5 Body Water Mass 110.2 Muscle Mass/Score 141.0 Basal Metabolic Rate/Score 1,969 Intake Visit Reasons: (OV) PO LSG 12/07/23 Allergies No Known Allergies Allergy (Verified 02/27/24 11:03) HPI Comments Details: This?a?38?yo male who is s/p LSG without hiatal hernia repair on?12/07/2023. Presents for 2.5 month post op visit. Weight today is 191.8 pounds, with a BMI of 30. There has been a 47.6 pound weight loss,(initial weight 239.4 pounds) since starting the program on 08/02/2023 reflecting a 19.8% total body weight loss and a weight loss of 27.5 pounds since surgery (operative weight 219.3 pounds) reflecting a 12.5% TBWL since surgery. No complaints of nausea, emesis, abdominal pain or reflux. Reports infrequent but normal bowel movements every 1- 2 days. Reports that he has not been taking his atenolol, 25 mg daily for the last several days. He states that he was in [place] visiting his daughter for graduation over the last 2 weeks. He did not exercise at that time. He also is very proud to report that he has wearing a medium shirt and size 34 pants. The pants are down from a size 44. He is since returned from [place] and has returned to the gym. Present meal plan includes: One scrambled eggs with 2 forks cooked chopped spinach Celebrate protein bar Four forks protein and 4 forks vegetables Another bar Celebrate rebuild shake, 1 scoop in 8 oz of Lactaid milk. Add multivitamin daily. 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: Yes (son, will have help post-op) Do you presently have visiting nurse or other home services: No Alcohol intake: never Patient Tobacco Use Status: Never used Tobacco service: No Physical Exam Vital Signs: Last Vital Signs Temp 97.1 F 02/27/24 11:00 Pulse 59 02/27/24 11:00 BP 150/90 H 02/27/24 11:00 Pulse Ox 95 02/27/24 11:00 Oxygen Delivery Method Room Air 02/27/24 11:00 BMI result Body Mass Index 30.0 Const General: healthy appearing and no acute distress Resp Effort & Inspection: normal respiratory effort Auscultation: clear to auscultation bilaterally Cardio Rate: regular rate Rhythm: regular rhythm GI Auscultation: normal bowel sounds Extrem General: Yes normal to inspection Assessment & Plan Assessment & Plan (1) S/P laparoscopic sleeve gastrectomy: Code(s): Z98.84 - Bariatric surgery status Category: Surgical Plan: He was away visiting his daughter in [place] for 2 weeks and did not exercise. He tried to follow the meal plan as closely as possible. He is now returned and is going to start exercising again. I suspect that he will continue to lose weight. We will have him return to the office in approximately 1 month. Continue current meal plan. Text weekly.
[2024-02-27 11:00] VITALS: BP 150/90; PULSE 59; TEMP 36.2; O2SAT 95
== END 2024-02-27 11:17 | disposition home or self-care (01) ==
LOC: HO.HBS 11:00
PROVIDERS: Visit Provider Physician Assistant Surgical
DX: Z98.84 Bariatric surgery status (principal)
CPT/HCPCS: 99024

== ENCOUNTER → 2024-02-27 11:00 | Outpatient (BNVA) | payer MEDICAID, SELFPAY | PROVIDERS: Visit Provider Physician Assistant Surgical | DX: Z98.84 Bariatric surgery status (principal) | CPT/HCPCS: 99212 ==

== ENCOUNTER 2024-04-11 16:00 | Outpatient (AMB) | payer MEDICAID, SELFPAY ==
--- NOTE | 2024-04-11 16:03 | A.OFFVIS_ITS ---
VS Expanded 04/11/24 16:11 BP 163/97 H Blood Pressure Location Rt brachial Blood Pressure Position Sitting Pulse 59 Pulse Source Pulse Oximeter Temp 97.3 F Temperature Source Temporal Artery Scan Pulse Oximetry 100 Oxygen Delivery Method Room Air Height 5 ft 7 in Weight 186 lb 12.8 oz BMI 29.3 Body Fat % 23.9 Body Fat Mass 44.6 Fat Free Mass 142.2 Visceral Fat Rating 10.0 Body Water % 55.6 Body Water Mass 103.8 Muscle Mass/Score 135.2 Basal Metabolic Rate/Score 1,890 Intake Visit Reasons: (OV) PO LSG 12/07/23 Allergies No Known Allergies Allergy (Verified 04/11/24 16:05) HPI Comments Details: This?a?38?yo male who is s/p LSG without hiatal hernia repair on?12/07/2023. Presents for 4 month post op visit. Weight today is 186.8 pounds, with a BMI of 29.3. There has been a 52.6 pound weight loss,(initial weight 239.4 pounds) since starting the program on 08/02/2023 reflecting a 21.9% total body weight loss and a weight loss of 32.5 pounds since surgery (operative weight 219.3 pounds) reflecting a 14.8% TBWL since surgery. No complaints of nausea, emesis, abdominal pain or reflux. Reports infrequent but normal bowel movements every 1- 2 days. Reports that he is doing very well. He is following his meal plan. He is exercising. He has no complaints and feels excellent. He is very happy that he is now in a 32 lb from 44. Present meal plan includes: One scrambled eggs with 2 forks cooked chopped spinach Celebrate protein bar Four forks protein and 4 forks vegetables Another bar Celebrate rebuild shake, 1 scoop in 8 oz of Lactaid milk. Add multivitamin daily. 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 at home: Yes (son, will have help post-op) Do you presently have visiting nurse or other home services: No Alcohol intake: never Patient Tobacco Use Status: Never used Tobacco service: No Physical Exam Const General: healthy appearing and no acute distress Resp Effort & Inspection: normal respiratory effort Auscultation: clear to auscultation bilaterally Cardio Rate: regular rate Rhythm: regular rhythm GI Auscultation: normal bowel sounds Extrem General: Yes normal to inspection Assessment & Plan Assessment & Plan (1) Overweight (BMI 25.0-29.9): Code(s): E66.3 - Overweight Category: Medical Plan: Patient is doing very well. Encouraged to increase his exercise to consistently do 400 calories at the gym. He is doing weight training and I encouraged him to do weights then cardio. Will return to the office in 2 months with recommendation to text weekly his weight and any questions or concerns.
[2024-04-11 16:11] VITALS: BP 163/97; PULSE 59; TEMP 36.3; O2SAT 100; BMI 29.3
== END 2024-04-11 16:25 | disposition home or self-care (01) ==
PROVIDERS: Visit Provider Physician Assistant Surgical
DX: E66.3 Overweight (principal)
CPT/HCPCS: 99213

== ENCOUNTER → 2024-04-11 16:00 | Outpatient (BNVA) | payer MEDICAID, SELFPAY | PROVIDERS: Visit Provider Physician Assistant Surgical | DX: E66.3 Overweight (principal); Z68.29 Body mass index [BMI] 29.0-29.9, adult; Z90.3 Acquired absence of stomach [part of] | CPT/HCPCS: 99212 ==

== ENCOUNTER 2024-06-10 14:49 | Outpatient (AMB) | payer MEDICAID, SELFPAY ==
--- NOTE | 2024-06-10 14:52 | MHC.OFFVISWM ---
VS Expanded 06/10/24 15:01 BP 140/88 H Blood Pressure Location Rt brachial Blood Pressure Position Sitting Pulse 59 Pulse Source Pulse Oximeter Temp 97.2 F Temperature Source Temporal Artery Scan Pulse Oximetry 100 Oxygen Delivery Method Room Air Height 5 ft 7 in Weight 185 lb 9.6 oz BMI 29.1 Body Fat % 23.1 Body Fat Mass 42.8 Fat Free Mass 142.6 Visceral Fat Rating 9.0 Body Water % 56.4 Body Water Mass 104.4 Muscle Mass/Score 135.6 Basal Metabolic Rate/Score 1,892 Intake Visit Reasons: (OV) PO LSG 12/07/23 Application Development Project Manager Required: No Application Development Project Manager Services: Application Development Project Manager Offered & Declined Allergies No Known Allergies Allergy (Verified 06/10/24 15:05) Medication List - Last Reconciled 06/10/24 by ALEXANDRE Royal atenolol 25 mg PO DAILY multivitamin 1 tab PO DAILY HPI Comments Details: This?a?38?yo male who is s/p LSG without hiatal hernia repair on?12/07/2023. Presents for 6 month post op visit. Weight today is 185.6 pounds, with a BMI of 29.1. There has been a 53.8 pound weight loss,(initial weight 239.4 pounds) since starting the program on 08/02/2023 reflecting a 22.4% total body weight loss and a weight loss of 32.5 pounds since surgery (operative weight 219.3 pounds) reflecting a 14.8% TBWL since surgery. No complaints of nausea, emesis, abdominal pain or reflux. Reports infrequent but normal bowel movements every 1-2 days. Reports that he is doing very well. He is following his meal plan. He is exercising. He has no complaints and feels excellent. He is very happy that he is now in a 32 lb from 44. Present meal plan includes: One scrambled eggs with 2 forks cooked chopped spinach Celebrate protein bar 4 forks protein and 4 forks vegetables Another bar drinkin oz water Exercise routine includes: PF-weights walking outside - 4 days per week, elliptical/bike 5 days per week, 350-400 megan Any post op complications: None SUSAN: never DM: never HTN: improved Hyperlipidemia: never GERD:?0-5 scale ??0 = no symptoms ??1 = symptoms noticeable but not bothersome 2 =symptoms bothersome but not daily ? 3 = symptoms bothersome and daily 4 = symptoms affect daily activities 5 = symptoms are incapacitating, unable to do daily activities ? How bad is the heartburn: 0 ? Heartburn while lying down: 0 ? Heartburn when standing up: 0 ? Heartburn after meals: 0 ? Does heartburn change your diet: 0 ? Does heartburn wake you up from sleep: 0 ? Do you have difficulty swallowin ? Do you have pain with swallowin ? 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 a significant other at home: Yes (son, will have help post-op) Do you presently have visiting nurse or other home services: No Alcohol intake: never Patient Tobacco Use Status: Never used Tobacco service: No Physical Exam Const General: cooperative and no acute distress Orientation/consciousness: patient oriented x3 Resp Effort & Inspection: normal respiratory effort Auscultation: clear to auscultation bilaterally Cardio Rate: regular rate Rhythm: regular rhythm GI Inspection: Yes normal to inspection and Yes incision (well healed) Palpation (GI): Soft to palpation and no masses Neuro General: patient oriented x3 Assessment & Plan Assessment & Plan (1) S/P laparoscopic sleeve gastrectomy: Code(s): Z98.84 - Bariatric surgery status Category: Surgical Plan: One scrambled eggs with 2 forks cooked chopped spinach Celebrate protein bar 6 forks protein and 6 forks vegetables Another bar Encouraged to track calories while walking 4 times a week, additionally when he goes to the gym, add stationary bike or elliptical. We will check six-month postop labs. Encouraged to continue to text weekly with weights and with any questions. Return to clinic 4 weeks Orders: Orders Insulin Today I10 - Essential (primary) hypertension, K76.0 - Fatty (change of) liver, not elsewhere classified, Z98.84 - Bariatric surgery status IRON PROFILE Today I10 - Essential (primary) hypertension, K76.0 - Fatty (change of) liver, not elsewhere classified, Z.84 - Bariatric surgery status Vitamin B12 and Folate Today I10 - Essential (primary) hypertension, K76.0 - Fatty (change of) liver, not elsewhere classified, Z.84 - Bariatric surgery status Zinc Today I10 - Essential (primary) hypertension, K76.0 - Fatty (change of) liver, not elsewhere classified, Z.84 - Bariatric surgery status Vitamin A Today I10 - Essential (primary) hypertension, K76.0 - Fatty (change of) liver, not elsewhere classified, Z.84 - Bariatric surgery status TSH reflex Free T4 Today I10 - Essential (primary) hypertension, K76.0 - Fatty (change of) liver, not elsewhere classified, Z.84 - Bariatric surgery status Ferritin Today I10 - Essential (primary) hypertension, K76.0 - Fatty (change of) liver, not elsewhere classified, Z98.84 - Bariatric surgery status Basic Metabolic Panel Today I10 - Essential (primary) hypertension, K76.0 - Fatty (change of) liver, not elsewhere classified, Z98.84 - Bariatric surgery status Hemoglobin A1c Today I10 - Essential (primary) hypertension, K76.0 - Fatty (change of) liver, not elsewhere classified, Z98.84 - Bariatric surgery status Complete Blood Count Auto Diff Today I10 - Essential (primary) hypertension, K76.0 - Fatty (change of) liver, not elsewhere classified, Z98.84 - Bariatric surgery status Lipid Panel Today I10 - Essential (primary) hypertension, K76.0 - Fatty (change of) liver, not elsewhere classified, Z98.84 - Bariatric surgery status C Reactive Protein Today I10 - Essential (primary) hypertension, K76.0 - Fatty (change of) liver, not elsewhere classified, Z.84 - Bariatric surgery status Vitamin B1 Today I10 - Essential (primary) hypertension, K76.0 - Fatty (change of) liver, not elsewhere classified, Z98.84 - Bariatric surgery status Vitamin D 25-OH Total Today I10 - Essential (primary) hypertension, K76.0 - Fatty (change of) liver, not elsewhere classified, Z98.84 - Bariatric surgery status
[2024-06-10 15:01] VITALS: BP 140/88; PULSE 59; TEMP 36.2; O2SAT 100; BMI 29.1
== END 2024-06-10 15:17 | disposition home or self-care (01) ==
PROVIDERS: Visit Provider Physician Assistant Surgical
DX: E66.3 Overweight (principal); Z68.29 Body mass index [BMI] 29.0-29.9, adult; Z98.84 Bariatric surgery status
CPT/HCPCS: 99214

== ENCOUNTER → 2024-06-10 14:49 | Outpatient (BNVA) | payer MEDICAID, SELFPAY | PROVIDERS: Visit Provider Physician Assistant Surgical | DX: K76.0 Fatty (change of) liver, not elsewhere classified (principal); I10 Essential (primary) hypertension; Z71.3 Dietary counseling and surveillance; Z98.84 Bariatric surgery status | CPT/HCPCS: 99212 ==

== ENCOUNTER 2024-07-29 09:58 | Outpatient (AMB) | payer MEDICAID, SELFPAY ==
--- NOTE | 2024-07-29 10:04 | A.OFFVIS_ITS ---
VS Expanded 07/29/24 10:15 BP 132/83 Blood Pressure Location Rt brachial Blood Pressure Position Sitting Pulse 66 Pulse Source Pulse Oximeter Temp 97.4 F Temperature Source Temporal Artery Scan Pulse Oximetry 97 Oxygen Delivery Method Room Air Height 5 ft 7 in Weight 181 lb 12.8 oz BMI 28.5 Body Fat % 21.0 Body Fat Mass 38.2 Fat Free Mass 143.6 Visceral Fat Rating 8.0 Body Water % 58.0 Body Water Mass 105.4 Muscle Mass/Score 136.4 Basal Metabolic Rate/Score 1,894 Intake Visit Reasons: (OV) PO LSG 12/07/23 Salesman/Owner Required: No Salesman/Owner Services: Salesman/Owner Offered & Declined Allergies No Known Allergies Allergy (Verified 06/10/24 15:05) Medication List - Last Reconciled 07/29/24 by ALEXANDRE Royal atenolol 25 mg PO DAILY multivitamin 1 tab PO DAILY HPI Comments Details: This?a?38?yo male who is s/p LSG without hiatal hernia repair on?12/07/2023. Presents for 8 month post op visit. Weight today is 181.8 pounds, with a BMI of 28.5. There has been a 57.6 pound weight loss,(initial weight 239.4 pounds) since starting the program on 08/02/2023 reflecting a 24% total body weight loss and a weight loss of 37.5 pounds since surgery (operative weight 219.3 pounds) reflecting a 17% TBWL since surgery. No complaints of nausea, emesis, abdominal pain or reflux. Reports infrequent but normal bowel movements every 1-2 days. Reports that he is doing very well. He is following his meal plan. He is exercising. He has no complaints and feels excellent. He is very happy that he is now in a 32 pant from 44. Present meal plan includes: One scrambled eggs with 2 forks cooked chopped spinach Celebrate protein bar 4 forks protein and 4 forks vegetables Another bar drinkin oz water Exercise routine includes: PF-weights walking outside - 5 miles, 3 days per week, elliptical/bike 3 days per week, 350-400 megan PFSH Medical History Obesity Snoring HTN (hypertension) Adjustment disorder Surgical History S/P laparoscopic sleeve gastrectomy Family History Mother Cancer Hypertension Diabetes Father Hypertension Son Asthma Daughter Asthma Social History Household Members: Family Household Members Other:: son Housing: Apartment Are you a primary critical care nurse to a significant other at home: Yes (son, will have help post-op) Do you presently have visiting nurse or other home services: No Alcohol intake: never Patient Tobacco Use Status: Never used Tobacco service: No Physical Exam Const General: healthy appearing and no acute distress Resp Effort & Inspection: normal respiratory effort Auscultation: clear to auscultation bilaterally Cardio Rate: regular rate Rhythm: regular rhythm GI Auscultation: normal bowel sounds Extrem General: Yes normal to inspection Assessment & Plan Assessment & Plan (1) Overweight (BMI 25.0-29.9): Code(s): E66.3 - Overweight Category: Medical Plan: Overall making steady progress. Continues multivitamin. Recommended he call to get a primary care doctor as he was enquiring about a note for an emotional support animal. I advised him this is done through primary care. He was given the number to call for a primary care physician at [facility]. We will have him return to the office as scheduled. He wishes to continue his current meal plan and exercise routine.
[2024-07-29 10:15] VITALS: BP 132/83; PULSE 66; TEMP 36.3; O2SAT 97; BMI 28.5
== END 2024-07-29 10:33 | disposition home or self-care (01) ==
PROVIDERS: PCP Internal Medicine; Visit Provider Physician Assistant Surgical
DX: E66.3 Overweight (principal)
CPT/HCPCS: 99213

== ENCOUNTER → 2024-07-29 09:58 | Outpatient (BNVA) | payer MEDICAID, SELFPAY | PROVIDERS: PCP Internal Medicine; Visit Provider Physician Assistant Surgical | DX: E66.3 Overweight (principal); Z68.28 Body mass index [BMI] 28.0-28.9, adult; Z90.3 Acquired absence of stomach [part of] | CPT/HCPCS: 99212 ==

== ENCOUNTER 2024-09-09 09:56 | Outpatient (AMB) | payer MEDICAID, SELFPAY ==
--- NOTE | 2024-09-09 10:06 | A.OFFVIS_ITS ---
VS Expanded 09/09/24 10:12 BP 141/81 H Blood Pressure Location Rt brachial Blood Pressure Position Sitting Pulse 52 Pulse Source Pulse Oximeter Temp 98.6 F Temperature Source Temporal Artery Scan Pulse Oximetry 100 Oxygen Delivery Method Room Air Height 5 ft 7 in Weight 181 lb 12.8 oz BMI 28.5 Body Fat % 21.0 Body Fat Mass 38.2 Fat Free Mass 143.6 Visceral Fat Rating 8.0 Body Water % 58.3 Body Water Mass 105.8 Muscle Mass/Score 136.4 Basal Metabolic Rate/Score 1,894 Intake Visit Reasons: (OV) PO LSG 12/07/23 Allergies No Known Allergies Allergy (Verified 09/09/24 10:08) HPI Comments Details: This?a?39?yo male who is s/p LSG without hiatal hernia repair on?12/07/2023. Presents for 9 month post op visit. Weight today is 181.8 pounds, with a BMI of 28.5. There has been a 57.6 pound weight loss,(initial weight 239.4 pounds) since starting the program on 08/02/2023 reflecting a 24% total body weight loss and a weight loss of 37.5 pounds since surgery (operative weight 219.3 pounds) reflecting a 17% TBWL since surgery. No complaints of nausea, emesis, abdominal pain or reflux. Reports infrequent but normal bowel movements every 1-2 days. Reports that he is doing very well. He is following his meal plan. He is exercising. He has no complaints and feels excellent. He is very happy that he is now in a 30 pant from 44 and small shirt. Present meal plan includes: One scrambled eggs with 2 forks cooked chopped spinach Celebrate protein bar 4 forks protein and 4 forks vegetables Another bar drinkin oz water Exercise routine includes: PF-weights walking outside - 5 miles, 3 days per week, elliptical/bike 3 days per week, 350-400 megan [facility] Medical History Obesity Snoring HTN (hypertension) Adjustment disorder Surgical History S/P laparoscopic sleeve gastrectomy Family History Mother Cancer Hypertension Diabetes Father Hypertension Son Asthma Daughter Asthma Social History Household Members: Family Household Members Other:: son Housing: Apartment Are you a primary director of career services to a significant other at home: Yes (son, will have help post-op) Do you presently have visiting nurse or other home services: No Alcohol intake: never Patient Tobacco Use Status: Never used Tobacco service: No Physical Exam Const General: healthy appearing and no acute distress Resp Effort & Inspection: normal respiratory effort Auscultation: clear to auscultation bilaterally Cardio Rate: regular rate Rhythm: regular rhythm GI Auscultation: normal bowel sounds Extrem General: Yes normal to inspection Assessment & Plan Assessment & Plan (1) S/P laparoscopic sleeve gastrectomy: Code(s): Z98.84 - Bariatric surgery status Category: Surgical Plan: Overall, patient is doing well. He denies any complaints at today's visit. 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 We will have him continue current meal plan and follow-up in the office for his 1 year postop appointment. He was encouraged to continue to text his weight weekly and with any questions or concerns.
[2024-09-09 10:12] VITALS: BP 141/81; PULSE 52; TEMP 37; O2SAT 100; BMI 28.5
== END 2024-09-09 10:21 | disposition home or self-care (01) ==
PROVIDERS: PCP Internal Medicine; Visit Provider Physician Assistant Surgical
DX: E66.3 Overweight (principal); Z68.28 Body mass index [BMI] 28.0-28.9, adult; Z90.3 Acquired absence of stomach [part of]; Z98.84 Bariatric surgery status
CPT/HCPCS: 99213

== ENCOUNTER → 2024-09-09 09:56 | Outpatient (BNVA) | payer MEDICAID, SELFPAY | PROVIDERS: PCP Internal Medicine; Visit Provider Physician Assistant Surgical | DX: Z98.84 Bariatric surgery status (principal) | CPT/HCPCS: 99212 ==

== ENCOUNTER 2024-12-06 09:47 | Outpatient (AMB) | payer MEDICAID, SELFPAY ==
--- NOTE | 2024-12-06 09:50 | A.OFFVIS_ITS ---
VS Expanded 12/06/24 09:53 BP 131/85 Blood Pressure Location Rt brachial Blood Pressure Position Sitting Pulse 58 Pulse Source Pulse Oximeter Temp 97.9 F Temperature Source Temporal Artery Scan Pulse Oximetry 99 Oxygen Delivery Method Room Air Height 5 ft 7 in Weight 173 lb 9.6 oz BMI 27.2 Body Fat % 21.9 Body Fat Mass 38.0 Fat Free Mass 135.6 Visceral Fat Rating 8.0 Body Water % 56.4 Body Water Mass 97.8 Muscle Mass/Score 128.8 Basal Metabolic Rate/Score 1,790 Intake Visit Reasons: (OV) PO LSG 12/07/23 Loader Technician Required: No Loader Technician Services: Loader Technician Offered & Declined Allergies No Known Allergies Allergy (Verified 12/06/24 09:59) Medication List - Last Reconciled 12/06/24 by ALEXANDRE Royal atenolol 25 mg PO DAILY multivitamin 1 tab PO DAILY HPI Comments Details: This?a?39?yo male who is s/p LSG without hiatal hernia repair on?12/07/2023. Presents for 1 year post op visit. Weight today is 173.6 pounds, with a BMI of 27.2. There has been a 65.8 pound weight loss,(initial weight 239.4 pounds) since starting the program on 08/02/2023 reflecting a 27.4% total body weight l oss and a weight loss of 45.7 pounds since surgery (operative weight 219.3 pounds) reflecting a 20.8% TBWL since surgery. No complaints of nausea, emesis, abdominal pain or reflux. Reports infrequent but normal bowel movements every 1- 2 days. Continues on MVI daily Reports that he is doing very well. He is following his meal plan. He is exercising. He has no complaints and feels excellent. He is very happy that he is now in a 30 pant from 44 and small shirt. Six-month postop labs ordered in 06/07/2024 were not done. He was reminded to get these labs checked as it is now 1 year postop. Present meal plan includes: One scrambled eggs with 2 forks cooked chopped spinach Celebrate protein bar 4 forks protein and 4 forks vegetables Another bar drinkin oz water Exercise routine includes: PF-weights elliptical 4 days per week, 350-400 megan Any post op complications: None SUSAN: Never DM: Never HTN: Improved Hyperlipidemia: Never GERD:?0-5 scale ??0 = no symptoms ??1 = symptoms noticeable but not bothersome 2 =symptoms bothersome but not daily ? 3 = symptoms bothersome and daily 4 = symptoms affect daily activities 5 = symptoms are incapacitating, unable to do daily activities ? How bad is the heartburn: 0 ? Heartburn while lying down: 0 ? Heartburn when standing up: 0 ? Heartburn after meals: 0 ? Does heartburn change your diet: 0 ? Does heartburn wake you up from sleep: 0 ? Do you have difficulty swallowin ? Do you have pain with swallowin ? If you take medicine for your reflux, does this affect your daily life: 0 Satisfaction with present condition - satisfied or not satisfied: satisfied [facility] Medical History Obesity Snoring HTN (hypertension) Adjustment disorder Surgical History S/P laparoscopic sleeve gastrectomy Family History Mother Cancer Hypertension Diabetes Father Hypertension Son Asthma Daughter Asthma Social History Household Members: Family Household Members Other:: son Housing: Apartment Are you a primary home care manager rn to a significant other at home: Yes (son, will have help post-op) Do you presently have visiting nurse or other home services: No Alcohol intake: never Patient Tobacco Use Status: Never used Tobacco service: No Physical Exam Vital Signs: Last Vital Signs Temp 97.9 F 12/06/24 09:53 Pulse 58 12/06/24 09:53 BP 131/85 12/06/24 09:53 Pulse Ox 99 12/06/24 09:53 Oxygen Delivery Method Room Air 12/06/24 09:53 BMI result Body Mass Index 27.2 Const General: cooperative and no acute distress Orientation/consciousness: patient oriented x3 Resp Effort & Inspection: normal respiratory effort Auscultation: clear to auscultation bilaterally Cardio Rate: regular rate Rhythm: regular rhythm GI Inspection: Yes normal to inspection and Yes incision (well healed) Palpation (GI): Soft to palpation and no masses Neuro General: patient oriented x3 Assessment & Plan Assessment & Plan (1) S/P laparoscopic sleeve gastrectomy: Code(s): Z98.84 - Bariatric surgery status Category: Surgical Plan: Patient reminded to get 1 year labs done. These were ordered in May. Patient is very satisfied with his meal plan. He is actively exercising as much as possible. Continue to encourage texting weekly and with any questions or concerns. Return to clinic six-month
[2024-12-06 09:53] VITALS: BP 131/85; PULSE 58; TEMP 36.6; O2SAT 99; BMI 27.2
== END 2024-12-06 10:08 | disposition home or self-care (01) ==
LOC: HO.HBS 09:48
PROVIDERS: PCP Internal Medicine; Visit Provider Physician Assistant Surgical
DX: E66.3 Overweight (principal); Z68.27 Body mass index [BMI] 27.0-27.9, adult; Z90.3 Acquired absence of stomach [part of]; Z98.84 Bariatric surgery status
CPT/HCPCS: 99213

== ENCOUNTER → 2024-12-06 09:47 | Outpatient (BNVA) | payer MEDICAID, SELFPAY | PROVIDERS: PCP Internal Medicine; Visit Provider Physician Assistant Surgical | DX: Z48.815 Encounter for surgical aftercare following surgery on the digestive system (principal); Z98.84 Bariatric surgery status | CPT/HCPCS: 99212 ==

== ENCOUNTER 2025-05-23 09:14 | Outpatient (AMB) | payer MEDICAID, SELFPAY ==
--- NOTE | 2025-05-23 09:15 | MHC.OFFVISWM ---
VS Expanded 05/23/25 09:27 BP 139/86 Blood Pressure Location Rt brachial Blood Pressure Position Sitting Pulse 57 Pulse Source Pulse Oximeter Temp 91.7 F L Temperature Source Temporal Artery Scan Pulse Oximetry 99 Oxygen Delivery Method Room Air Height 5 ft 7 in Weight 168 lb 9.6 oz BMI 26.4 Body Fat % 16.2 Body Fat Mass 0.4 Fat Free Mass 141.0 Visceral Fat Rating 6.0 Body Water % 61.8 Body Water Mass 104.0 Muscle Mass/Score 134.0 Basal Metabolic Rate/Score 1,844 Intake Visit Reasons: (OV) PO LSG 12/07/23 Senior Patrol Agent Required: Yes Senior Patrol Agent Services: Senior Patrol Agent Offered & Declined Allergies No Known Allergies Allergy (Verified 05/23/25 09:20) Medication List - Last Reconciled 05/23/25 by ALEXANDRE Royal atenolol 25 mg PO DAILY multivitamin 1 tab PO DAILY HPI Comments Details: This?a?39?yo male who is s/p LSG without hiatal hernia repair on?12/07/2023. Presents for 1 year 6 monthspost op visit. Weight today is 168.6 pounds, with a BMI of 26.4. There has been a 70.8 pound weight loss,(initial weight 239.4 pounds) since starting the program on 08/02/2023 reflecting a 29.5% total body weight loss and a weight loss of 50.7 pounds since surgery (operative weight 219.3 pounds) reflecting a 23.1% TBWL since surgery. No complaints of nausea, emesis, abdominal pain or reflux. Reports infrequent but normal bowel movements every 1-2 days. Continues on MVI daily Reports that he is doing very well. He is following his meal plan. He is exercising. He has no complaints and feels excellent. He is very happy that he is now in a 30 pant from 44 and small shirt. Six-month postop labs ordered in 06/07/2024 were not done. He was reminded to get these labs checked as it is now 1 year postop. Present meal plan includes: One scrambled eggs with 2 forks cooked chopped spinach Celebrate protein bar 4 forks protein and 4 forks vegetables Another bar drinkin oz water Exercise routine includes: PF-weights elliptical/stationary bike and running 5 days per week, 400-450 megan Any post op complications: None SUSAN: Never DM: Never HTN: Improved Hyperlipidemia: Never GERD:?0-5 scale ??0 = no symptoms ??1 = symptoms noticeable but not bothersome 2 =symptoms bothersome but not daily ? 3 = symptoms bothersome and daily 4 = symptoms affect daily activities 5 = symptoms are incapacitating, unable to do daily activities ? How bad is the heartburn: 0 ? Heartburn while lying down: 0 ? Heartburn when standing up: 0 ? Heartburn after meals: 0 ? Does heartburn change your diet: 0 ? Does heartburn wake you up from sleep: 0 ? Do you have difficulty swallowin ? Do you have pain with swallowin ? If you take medicine for your reflux, does this affect your daily life: 0 Satisfaction with present condition - satisfied or not satisfied: satisfied ON LICENSE OF [facility] Medical History Obesity Snoring HTN (hypertension) Adjustment disorder Surgical History S/P laparoscopic sleeve gastrectomy Family History Mother Cancer Hypertension Diabetes Father Hypertension Son Asthma Daughter Asthma Social History Household Members: Family Household Members Other:: son Housing: Apartment Are you a primary career consultant to a significant other at home: Yes (son, will have help post-op) Do you presently have visiting nurse or other home services: No Alcohol intake: never Patient Tobacco Use Status: Never used Tobacco service: No Physical Exam Const General: cooperative and no acute distress Orientation/consciousness: patient oriented x3 Resp Effort & Inspection: normal respiratory effort Auscultation: clear to auscultation bilaterally Cardio Rate: regular rate Rhythm: regular rhythm GI Inspection: Yes normal to inspection and Yes incision (well healed) Palpation (GI): Soft to palpation and no masses Neuro General: patient oriented x3 Assessment & Plan Assessment & Plan (1) S/P laparoscopic sleeve gastrectomy: Code(s): Z98.84 - Bariatric surgery status Category: Surgical Plan: Patient is doing exceedingly well. He is following the meal plan and exercising regularly. He has achieved a healthy weight and is very satisfied with his progress. I encouraged him to get his labs which he has not done. We will have him follow-up in the office in 6 months, sooner should there be any questions or concerns.
[2025-05-23 09:27] VITALS: BP 139/86; PULSE 57; TEMP 33.2; O2SAT 99; BMI 26.4
--- OUTSIDE RECORDS SUMMARY | 2025-05-23 09:58 | XMS_ITS | Clinical Summary ---
Author Organization [facility] Address [address] [place] [address] Care Team Providers Care Nurse Quality Name Role Phone Raisa Pierre PA-C Primary Care Provider Source Comments PLEASE NOTE, if this patient is a minor, it may be UNLAWFUL to discuss sensitive information that is contained in these records (such as FAMILY PLANNING, MENTAL HEALTH or SUBSTANCE ABUSE) with the minor patient's parent or other person without the patient's specific authorization.[facility] Allergies No known active allergies Medications atenoloL (TENORMIN) 25 mg tablet Take 25 mg by mouth once daily. 12/02/2024 Active Active Problems No known active problems Encounters Date Type Department Care Team Description 04/07/2025 8:00 AM EDT Telemedicine Visit [address] [address] Raisa Pierre PA-C from Last 3 Months Immunizations Immunization Administration Dates Next Due Hep B,adult,adjuvanted (HEPLISAV) 02/13/2025 TDAP 02/13/2025 Family History Medical History Relation Name Comments Breast cancer Mother Cervical Cancer Mother Hypertension Mother Relation Name Status Comments Mother Social History Tobacco Use Types Packs/Day Years Used Date Smoking Tobacco: Never Passive Smoke Exposure: Never Smokeless Tobacco: Never Tobacco Cessation:Counseling Given: No Alcohol Use Standard Drinks/Week Comments Never 0 (1 standard drink = 0.6 oz pur e alcohol) Social Connections Answer Date Recorded How often do you feel lonely or isolated from th ose around you? 1 04/07/2025 Financial Resource Strain Answer Date R ecorded Hard to pay for: Food 1 04/07/2025 Stress Answer Date Recorded Do you feel these kinds of stress these days? 04/07/2025 Food Insecurity Answer Date Recorded Hard to pay for: Food 1 04/07/2025 Transportation Needs Answer Date Record ed Hard to pay for: Transportation 1 04/07/2025 Housing Stability Answer Date Recorded Hard to pay for: Rent/Mortgage payment 1 02/13/2025 Utilities Answer Date Recorded Hard to pay for: Utilities 1 04/07 Sex and Gender Information Value Date Recorded Sex Assigned at Male 02/13/2025 7:31 AM PDT Legal Sex Male 7:32 AM PST Gender Identity Male 02/13/2025 7:31 AM PDT Sexual Orientation Straight 02/13/2025 7: 31 AM PDT Last Filed Vital Signs Vital Sign Reading Time Taken Comments Blood Pressure 126/94 02/13/2025 10:33 AM EDT Pulse 51 02/13/2025 10:33 AM EDT Temperature 36.7 C (98.1 F) 02/13/2025 10:33 AM EDT Respiratory Rate 16 02/13/2025 10:33 AM EDT Oxygen Saturation 100% 02/13/2025 10:33 AM EDT Inhaled Oxygen Concentration - - Weight 75.3 kg (166 lb) 04/07/2025 8:05 AM EDT Height 170.2 cm (5' 7 ) 04/07/2025 8:05 AM EDT Body Mass Index 26 04/07/2025 8:05 AM EDT Plan of Treatment Health Maintenance Due Date Last Done Comments Oye-KKALE-16 ( season) 2024 Imm-Hepatitis B (2 of 2 - Cp G 2-dose series) 03/13/2025 02/13/2025 Imm-Influenza (#1) 2025 Depression Monitoring 07/08/2025 04/07/2025, 025 Anxiety Screening 04/07/2026 04/07/2025 Tobacco Screening 04/07/2026 04/07/2025, 02/13/2025 Diabetes Screening 02/14/2028 02/13/2025 Lipid Screening 02/14/2028 02/13/2025 Imm-DTaP/Tdap/Td (3 - Td or Tdap) 02/13/2035 025, 08/03/2021 HIV Screening Completed 02/13/2025 Hepatitis C Screening Completed 02/13/2025 Alcohol and Drug Screen Completed 04/07/2025, 02/13 Procedures Procedure Name Priority Date/Time Associated Diagnosis Comments HIV 1/2 AG & AB W/RFLX (4TH GEN) Routine 02/13/2025 11:21 AM EDT Routine screening for STI (sexually transmitted infection) HEPATITIS C AB W/RFLX HCV RNA, QT, RT PCR Routine 02/13/2025 11:21 AM EDT Routine screening for STI (sexually transmitted infection) COMPREHENSIVE METABOLIC PANEL Routine 02/13/2025 11:21 AM EDT Benign essential HTN LIPIDS W RFLX TO DIRECT LDL Routine 02/13/2025 11:21 AM EDT Benign essential HTN from Last 3 Months or Most Recently Relevant to Health Maintenance Results * HEPATITIS C AB W/RFLX HCV RNA, QT, RT PCR Routine (02/13/2025 11:21 AM EDT) HEPATITIS C ANTIBODY NON-REACT KAITLYN NON-REACT KAITLYN [facility] Comment: HCV antibody was non-reactive. There is no laboratory evidence of HCV infection. In most cases, no further action is required. However, if recent HCV exposure is suspected, a test for HCV RNA (test code 78023) is suggested. For additional information please refer to http://education.PacketVideo/faq/CPI29u0 (This link is being provided for informational/ educational purposes only.) Blood Blood / Unknown 02/13/2025 1 1:21 AM EDT 02/13/2025 11:22 AM EDT us Raisa Pierre PA-C LAB - BLOOD DRAW Edited Resu lt - Final [facility] [address] [address], [facility] [address] [address] * HIV 1/2 AG & AB W/RFLX (4TH GEN) Routine (02/13/2025 11:21 AM EDT) HIV AG/AB, 4TH GEN NON-REAC TIVE NON-REAC TIVE [facility] Comment: HIV-1 antigen and HIV-1/HIV-2 antibodies were not detected. There is no laboratory evidence of HIV infection. PLEASE NOTE: This information has been disclosed to you from records whose confidentiality may be protected by state law. If your state requires such protection, then the state law prohibits you from making any further disclosure of the information without the specific written consent of the person to whom it pertains, or as otherwise permitted by law. A general authorization for the release of medical or other information is NOT sufficient for this purpose. For additional information please refer to http://education.PacketVideo/faq/ASX254 (This link is being provided for informational/ educational purposes only.) The performance of this assay has not been clinically validated in patients less than 2 years old. Blood Blood / Unknown 02/13/2025 1 1:21 AM EDT 02/13/2025 11:22 AM EDT Raisa Pierre PA-C LAB - BLOOD DRAW Final Resul t [facility] [address] [place] [id number], [facility] [address] [place] [phone] * LIPIDS W RFLX TO DIRECT LDL Routine (02/13/2025 11:21 AM EDT) Pathologist [facility] CHOLESTEROL, TOTAL 152 <200 mg/dL [facility] HDL CHOLESTEROL 53 > OR = 40 mg/dL [facility] TRIGLYCERIDES 59 <150 mg/dL [facility] LDL-CHOLESTEROL 85 99 mg/dL (calc) [facility] Comment: Reference range: <100 Desirable range <100 mg/dL for primary prevention; <70 mg/dL for patients with CHD or diabetic patients with > or = 2 CHD risk factors. LDL-C is now calculated using the Poppy calculation, which is a validated novel method providing better accuracy than the Friedewald equation in the estimation of LDL-C. Rob PATEL et al. CHRIST. 2013;310(19): 4121-1088 (http://education.Tripl.iMemories/faq/VDB496) CHOL/HDLC RATIO 2.9 <5.0 (calc) [facility] NON-HDL CHOLESTEROL 99 <130 mg/dL (calc) [facility] Comment: For patients with diabetes plus 1 major ASCVD risk factor, treating to a non-HDL-C goal of <100 mg/dL (LDL-C of <70 mg/dL) is considered a therapeutic option. Blood Blood / Unknown 02/13/2025 1 1:21 AM EDT 02/13/2025 11:22 AM EDT Raisa Pierre PA-C LAB - BLOOD DRAW Final Resul t [facility] [address] [address], [facility] [address] [address] * COMPREHENSIVE METABOLIC PANEL Routine (02/13/2025 11:21 AM EDT) GLUCOSE 91 65 - 99 mg/dL [facility] Comment: Fasting reference interval UREA NITROGEN (BUN) 20 7 - 25 mg/dL [facility] CREATININE (blood) 0.73 0.60 - 1.29 mg/dL [facility] EGFR 118 > OR = 60 mL/min/1. 73m2 [facility] BUN/CREATININE RATIO SEE NOTE: [facility] Comment: Not Reported: BUN and Creatinine are within reference range. SODIUM 140 135 - 146 mmol/L [facility] POTASSIUM 5.3 3.5 - 5.3 mmol/L [facility] CHLORIDE 106 98 - 110 mmol/L [facility] CARBON DIOXIDE 30 20 - 32 mmol/L [facility] CALCIUM 9.6 8.6 - 10.3 mg/dL [facility] PROTEIN, TOTAL 7.3 6.1 - 8.1 g/dL [facility] ALBUMIN 4.3 3.6 - 5.1 g/dL [facility] GLOBULIN 3.0 1.9 - 3.7 g/dL (calc) [facility] ALBUMIN/GLOBULI N RATIO 1.4 1.0 - 2.5 (calc) [facility] BILIRUBIN, TOTAL 0.8 0.2 - 1.2 mg/dL [facility] ALKALINE PHOSPHATASE 66 36 - 130 U/L [facility] AST 12 10 - 40 U/L [facility] ALT 9 9 - 46 U/L [facility] Blood Blood / Unknown 02/13/2025 1 1:21 AM EDT 02/13/2025 11:22 AM EDT us Raisa Pierre PA-C LAB - BLOOD DRAW Edited Resu lt - Final [facility] [address] [address], [facility] [address] [place] [address] from Last 3 Months or Most Recently Relevant to Health Maintenance Insurance [place] MEDICAID Care Teams Nurse Quality Relationship Specialty Start Date End Date Raisa Pierre PA-C [address] [place] [address] PCP - General FAMILY MEDICINE, [place] 03/20/25
--- OUTSIDE RECORDS SUMMARY | 2025-05-23 09:59 | XMS_ITS | Patient Health Record ---
Author Organization [facility] Address [address] [place] [address] Care Team Providers Care Licensed Optician Name Role Phone Adal Campos Primary Care Provider [phone] Reason For Referral No Information Medications Medication SIG (Take, Route, Frequency, Duration) Notes Start Date End Date Status meningococcal conjugate vaccine - 0.5 mL intramuscularly; fiber picker for clinicOR administer at store once for 1 day Not-Taking topiramate 25 mg 1 tab(s) orally 2 times a day; for two weeks; then 2 bid for 30 days 06/27/2022 Active Immunizations Vaccine Route Administration Date Status Comme nts Hepatitis A IM Intramuscular 05/04/[address] [facility] 5 [id number] [employer] Covid-19 Vaccine Administration - First Dose (Single Dose 30MCG/0.3ML 1ST) Unknown 03/10/2021 Administered given at [facility] Pfizer-d[employer]nt[employer]imus Covid-19 Vaccine Administration-Secon d Dose (Single Dose 30MCG/0.3ML 2ND) Unknown 04/07/2021 Administered given at [facility] Tdap IM Intramuscular 08/03/2021 Administered Moderna Covid-19 Booster Administration - Third Dose (Single Dose 50 mcg/0.25 mL Unknown 10/02/2021 Administered Hepatitis A IM Intramuscular 05/27/2022 Administered Problems Problem Type SNOMED Code ICD Code Onset Dates Problem Status W/U Status Risk Notes Problem Overweight (586116669) Overweight (E66.3) Active confirmed Problem Elevated blood pressure reading without diagnosis of hypertension (375451990) Elevated blood-pressure reading, without diagnosis of hypertension (R03.0) Active confirmed Problem Body mass index 35.00 to 39.99 ([id number] ) Body mass index [BMI] 37.0-37.9, adult (Z68.37) Active confirmed Encounters Encounter Location Date Provider Diagnosis [facility] [address] [place] [address] 07/04/2024 Adal Campos Plan Of Treatment No Information Insurance Providers Payer Name Payer Address Payer Phone Subscriber Number Group Number Insured Name Patient Relationship to Insured Coverage Start Date Coverage End Date [place] Medicaid C3 [address] [place], [place] [id number] Maninder Garcia Self - patient is the insured 1 Medical (General) History Medical History History ICD Code healthy homelessness Sheltered homelessness Z59.01 Surgical History Surgery Date(Month/Year) None Hospitalization History Reason Date(Month/Year) None
--- OUTSIDE RECORDS SUMMARY | 2025-05-23 09:59 | XMS_ITS | Clinical Summary ---
Author Organization [facility] Address [address] [facility] [address] [place] [address] Care Team Providers Care Jet Inspector Name Role Phone Unavailable Primary Care Provider Unavailabl e Encounters Date Type Department Care Team Description 04/08/2025 Population Health Risk Score [facility] (C3) Department [address] [address] Provider, Population Health Generic from Last 3 Months Social History Tobacco Use Types Packs/Day Years Used Date Smoking Tobacco: Never Assessed Sex and Gender Information Value Date Recorded Sex Assigned at Not on file Legal Sex Male 9:20 PM EDT Gender Identity Not on file Sexual Orientation Not on file Plan of Treatment Health Maintenance Due Date Last Done Comments Depression Screening 1984 Lipid Panel 1984 SDOH Screening 1984 Disability Screening 1984 Alcohol/Substance Use Screening 1996 Tobacco Screening 1996 Family Planning (PISQ) 1999 HPV Vaccines (1 - Male 3-dos e series) 1999 Hepatitis C Screening 2002 Hepatitis B Vaccines (2 of 2 - CpG 2-dose series) 03/13/2025 02/13/2025 COVID-19 Vaccine (1 - 2023-2 5 season) 2025 Influenza Vaccine (#1) 2025 Zoster Vaccines (1 of 2) 2034 DTaP/Tdap/Td Vaccines (2 - T d or Tdap) 02/13/2035 02/13/2025 RSV Patients and Patients Aged 60 years or older (1 - 1-dose 75+ series) 2059 HIV Screening Completed 02/13/2025, 02/13/2025 HIB Vaccines Aged Out No longer eligi ble based on patient's age to complete this topic Hepatitis A Vaccines Aged Out No long er eligible based on patient's age to complete this topic IPV Vaccines Aged Out No longer eligi ble based on patient's age to complete this topic Meningococcal B Vaccine Aged Out No l onger eligible based on patient's age to complete this topic Meningococcal Vaccine Aged Out No emilee maykel eligible based on patient's age to complete this topic Pneumococcal Vaccine: Pediatrics (0 to 5 Years) and At-Risk Patients (6 to 49) Years Aged Out No longer eligible b ased on patient's age to complete this topic RSV under 20 months Aged Out No longe r eligible based on patient's age to complete this topic Rotavirus Vaccines Aged Out No longer eligible based on patient's age to complete this topic
--- OUTSIDE RECORDS SUMMARY | 2025-05-23 09:59 | XMS_ITS | Clinical Summary ---
Author Organization [facility] it Address [address] [place] [address] Care Team Providers Care Sanitation Supervisor Name Role Phone Unavailable Primary Care Provider Unavailabl e Social History Tobacco Use Types Packs/Day Years Used Date Smoking Tobacco: Never Assessed Sex and Gender Information Value Date Recorded Sex Assigned at Not on file Legal Sex Male 2:31 PM EST Gender Identity Not on file Sexual Orientation Not on file Plan of Treatment Health Maintenance Due Date Last Done Comments DTaP,Tdap,and Td Vaccines (1 - Tdap) 2003 Hepatitis B Vaccines (1 of 3 - 19+ 3-dose series) 2003 Cholesterol Screening (Lipid Panel) 08/17/2022 HIV Screening 08/17/2022 Hepatitis C Screening 08/17/2022 Social Influencers of Health Screening 08/17/2022 COVID-19 Vaccine ( - 2023-2 5 season) 2024 Depression Screening 09/18/2024 Influenza Vaccine (#1) 2025 HIB Vaccines Aged Out No longer eligi ble based on patient's age to complete this topic HPV Vaccines Aged Out No longer eligi ble based on patient's age to complete this topic Hepatitis A Vaccines Aged Out No long er eligible based on patient's age to complete this topic IPV Vaccines Aged Out No longer eligi ble based on patient's age to complete this topic MMR Vaccines Aged Out No longer eligi ble based on patient's age to complete this topic Meningococcal ACWY Vaccine Aged Out N o longer eligible based on patient's age to complete this topic Meningococcal B Vaccine Aged Out No l onger eligible based on patient's age to complete this topic Pneumococcal Vaccine: Pediat rics (0 to 5 Years) and At-Risk Patients (6 to 49 Years) Aged Out No longer eligible b ased on patient's age to complete this topic RSV Immunization Patients Un mukund 20 months Aged Out No longer eligible b ased on patient's age to complete this topic Varicella Vaccines Aged Out No longer eligible based on patient's age to complete this topic
== END 2025-05-23 09:32 | disposition home or self-care (01) ==
LOC: HO.HBS 09:15
PROVIDERS: PCP Internal Medicine; Visit Provider Physician Assistant Surgical
DX: E66.3 Overweight (principal); Z68.26 Body mass index [BMI] 26.0-26.9, adult; Z90.3 Acquired absence of stomach [part of]; Z98.84 Bariatric surgery status
CPT/HCPCS: 99213

== ENCOUNTER → 2025-05-23 09:14 | Outpatient (BNVA) | payer MEDICAID, SELFPAY | PROVIDERS: PCP Internal Medicine; Visit Provider Physician Assistant Surgical | DX: E66.9 Obesity, unspecified (principal); Z68.26 Body mass index [BMI] 26.0-26.9, adult; Z90.3 Acquired absence of stomach [part of] | CPT/HCPCS: 99212 ==